=== PATIENT | male | born 1935 | race Caucasian/White ===

== ENCOUNTER 2019-05-07 18:15 | Observation (INO) | payer MEDICARE, BC, SELFPAY ==
--- NOTE | 2019-05-07 | DI.ECHO.S_ITS ---
[facility] +---------+ : : [address] : : : : [id number] : : : : Phone: [phone] Echocardiogram Report + + :Name: JACKY FERNANDES Study Date: 05/08/2019 Height: 68 in : :[facility] Weight: 180 lb : : Gender: Male BSA: 2.0 m2 : :: 1935 Age: 83 yrs BP: 125/78 mmHg: :Reason For Study: STROKE : :Ordering Physician: Dunia : :Hospitalist Performed By: Lyly Walton : :Referring: YUMIKO ROSARIO : + + Interpretation Summary The left ventricular ejection fraction is normal. There are no obvious focal wall motion abnormalities noted but poor endocardial definition reduces the sensitivity for the detection of such. Diastolic parameters suggest a relaxation abnormality of the left ventricle, consistent with probable normal filling pressures. The right ventricle is normal in size and function. The right ventricular systolic pressure is estimated to be at least 24 mmHg based on an estimated right atrial pressure of 8 mm Hg. The left atrium is mildly dilated. There is no Doppler evidence for an interatrial shunt. Fixed and calcified LCC with no hemodynamically significant aortic stenosis. There is no prior echocardiogram noted for this patient. Procedure: A two-dimensional transthoracic echocardiogram with color flow and Doppler was performed. The study quality was technically adequate. There is no prior echocardiogram noted for this patient. The patient was in sinus bradycardia with heart rates between 50 and 69 bpm during the exam. Left Ventricle: The left ventricle is normal in size. There is normal left ventricular wall thickness. The left ventricular ejection fraction is normal. The ejection fraction is estimated to be 55-60%. There are no obvious focal wall motion abnormalities noted but poor endocardial definition reduces the sensitivity for the detection of such. Diastolic parameters suggest a relaxation abnormality of the left ventricle, consistent with probable normal filling pressures. Right Ventricle: The right ventricle is normal in size and function. Atria: The left atrium is mildly dilated. Right atrial size is normal. There is no Doppler evidence for an interatrial shunt. Mitral Valve: The mitral valve leaflets appear borderline thickened, but open well. There is no mitral valve stenosis. There is mild mitral regurgitation. Aortic Valve: The aortic valve is trileaflet. The aortic valve is mildly calcified. The aortic valve opens well. Fixed and calcified LCC. There is no aortic valve stenosis. There is trace aortic regurgitation. Tricuspid Valve: The tricuspid valve is normal. There is mild tricuspid regurgitation. The right ventricular systolic pressure is estimated to be at least 24 mmHg based on an estimated right atrial pressure of 8 mm Hg. Pulmonic Valve: The pulmonic valve is not well seen, but is grossly normal. There is mild to moderate pulmonic regurgitation. 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 The ascending aorta is at the upper limits of normal in size. The aortic arch could not be visualized. The pulmonary is not well visualized. The IVC is dilated (diameter is greater than 2.1 cm) yet it collapses greater than 50% with a sniff. This suggests a right atrial pressure of 8 mm Hg. Pericardium/ Pleura There is no pericardial effusion. There is no pleural effusion. MMode/2D Measurements & Calculations LVIDd: 4.5 cm LVOT diam: 2.4 cm LVIDs: 2.8 cm Ao root diam: 4.5 cm FS: 37.9 % asc Aorta Diam: 3.7 cm EPSS: 0.28 cm IVSd: 1.0 cm LVPWd: 1.1 cm LV ellison. diameter/BSA (cm/m^2): 2.3 LV sys. diameter/BSA (cm/m^2): 1.4 LA A2 area: 22.6 cm2 RA long axis: 3.9 cm LA A4 area: 22.1 cm2 RA area: 14.0 cm2 LA length (vol): 5.5 cm RA vol: 43.2 ml LA vol: 76.7 ml RA : 22.1 ml/m2 LA vol index: 39.2 ml/m2 IVC diam: 2.7 cm RVD1 (basal): 4.6 cm RVD2 (mid): 3.2 cm TAPSE: 2.6 cm Doppler Measurements & Calculations Ao V2 max: 124.6 cm/sec LVOT Max Corwin: 92.1 cm/sec Ao V2 mean: 87.4 cm/sec LV V1 max P.4 mmHg Ao max P.2 mmHg LV V1 VTI: 21.7 cm Ao mean P.4 mmHg AKUA(I,D): 3.5 cm2 Ao V2 VTI: 28.6 cm AKUA(V,D): 3.4 cm2 sev ratio: 0.76 AKUA indexed to BSA (cm^2/m^2): 1.8 MV E max corwin: 63.6 cm/sec TR max corwin: 197.0 cm/sec MV A max corwin: 74.1 cm/sec TR max P.5 mmHg MV E/A: 0.86 PA V2 max: 62.4 cm/sec Med Peak E' Corwin: 6.1 cm/sec PA V2 mean: 41.6 cm/sec E/E' med: 10.4 PA mean P.77 mmHg Lat Peak E' Corwin: 6.6 cm/sec PA Accel Time: 0.08 sec E/E' lat: 9.6 E/e' average: 10.0 MV dec time: 0.34 sec SV(LVOT): 99.7 ml Electronically signed by: Raymond Velasco M.D. on Reading Physician:05/08/2019 02:52 PM
[2019-05-07 18:28] VITALS: BP 152/93; PULSE 77; RESP 12; TEMP 36.6; O2SAT 96
--- NOTE | 2019-05-07 18:28 | ED.NEUROSD ---
HPI - Neuro Symptoms/Deficit General Chief Complaint: Neuro Symptoms/Deficit Stated Complaint: thinks he had a TIA Time Seen by Provider: 05/07/19 18:19 Source: patient and family Mode of arrival: ambulatory Limitations: no limitations History of Present Illness HPI Narrative: Patient is a 83-year-old male with history of TIA presenting with difficulty speaking now resolved. He states that he was on the phone talking with his and his daughter. His states that he was having trouble remembering things he should no. Apparently his daughter had difficulty understanding him. Previously when he has had TIAs he felt numbness and tingling in his extremities he denies feeling any of those symptoms this time. Symptoms lasted from about 2:30 p.m. to about 4:00 p.m. he is now out of the window of tPA and the symptoms have completely resolved. He denies any symptoms no chest pain shortness of breath dizziness lightheadedness numbness tingling weakness speech difficulty or facial drooping. He does take Aggrenox and he took it today already. Timing confirmed by: spouse Location: speech History of same: Yes Related Data Home Medications Medication Instructions Recorded Confirmed aspirin-dipyridamole [Aggrenox] 1 cap PO BID 05/07/19 05/07/19 doxazosin 1 mg PO BEDTIME 05/07/19 05/07/19 ramipril 5 mg PO BID 05/07/19 05/07/19 simvastatin 10 mg PO BEDTIME 05/07/19 05/07/19 Allergies Allergy/AdvReac Type Severity Reaction Status Date / Time No Known Drug Allergies Allergy Verified 05/07/19 18:31 Review of Systems Review of Systems GENERAL: Denies chills, fatigue, malaise, fever, sweats, travel HEENT: Denies sinus pain, ear pain, sore throat, difficulty swallowing, neck pain RESPIRATORY: Denies dyspnea, cough, wheezing, hemoptysis, sputum. CARDIOVASCULAR: Denies chest pain, palpitations, orthopnea, edema GASTROINTESTINAL: Denies nausea, vomiting, abdominal pain, diarrhea, constipation, melena. : Denies dysuria, frequency, incontinence, hematuria, urinary retention, flank pain. MUSCULOSKELETAL: Denies weakness, joint pain, or bony pain SKIN: No rash, no erythema, no pruritus NEUROLOGIC: See HPI PSYCHIATRIC: No concerning psychosocial issues. 12 point review of systems is negative except for those stated above and HPI [facility] Medical History Prostate cancer (Acute) TIA (transient ischemic attack) (Acute) Surgical History Status post appendectomy (Acute) Status post tonsillectomy and adenoidectomy (Acute) Social History (Updated 05/07/19 @ 18:33 by Leslie Rae DO) Smoking Status: Never smoker alcohol intake: never substance use type: does not use Social History household members: spouse Smoking Status: Never smoker alcohol intake: never substance use type: does not use Comment: Lives in [place]. Currently living on boat Exam Initial Vital Signs Initial Vital Signs: Vital Signs Temperature 97.8 F 05/07/19 18:28 Pulse Rate 77 05/07/19 18:28 Respiratory Rate 12 05/07/19 18:28 Blood Pressure 152/93 H 05/07/19 18:28 Pulse Oximetry 96 05/07/19 18:28 GENERAL: Well-appearing, well-nourished and in no acute distress. HEENT: Head atraumatic,EOMI, pupils reactive, face symmetric, moist mucous membranes CARDIOVASCULAR: Regular rate and rhythm without murmurs, rubs or gallops. RESPIRATORY: Breath sounds equal bilaterally, no wheezes rales or rhonchi. ABDOMEN: Soft, nontender. Normoactive bowel sounds all 4 quadrants. No guarding or rebound. EXTREMITIES: Normal range of motion, no clubbing or edema. Neurovascularly intact NEUROLOGICAL: Alert and oriented x4.Normal gait and speech. Cranial nerves II through XII grossly intact. Good [id number]-[id number], good pbtj-bu-gpwg, strength equal bilaterally, no dysarthria or aphasia, sensation in tact to soft touch bilaterally, no visual changes, no facial droop SKIN: Warm, dry, no laceration, no petechiae, no rashes or lesions. Scores ABCD2 Age >= 60 years: yes Initial BP. Either SBP >= 140 or DBP >= 90.: yes Clinical features of the TIA: speech disturbance without weakness Duration of symptoms: >= 60 minutes History of diabetes: no ABCD2 Score: 5 NIH Stroke Scale Level of Conciousness: Alert, keenly responsive Ask month/age: Answers both questions correctly. Open/close eyes, close hand: Performs both tasks correctly Best gaze horizontal: Normal Visual lou: No visual loss Facial palsy: Normal symetrical movement Left arm drift: No drift for full 10 sec Right arm drift: No drift for full 10 sec Left leg drift: No drift for full 10 sec Right leg drift: No drift for full 10 sec Limb ataxia: Absent Sensory on face/arms/legs: Normal, no sensory loss Best language: No aphasia, normal Dysarthria: Normal Extinction or inattention: No abnormality Total NIH Stroke scale score: 0 Course Orders Ordered: ED Orders 05/07/19 18:28 CT head/brain wo con Stat EKG-12 Lead Stat 05/07/19 18:37 Complete Blood Count AUTO DIFF Stat Comprehensive Metabolic Panel Stat Partial Thromboplastin Time Stat Prothrombin Time INR Stat Troponin I Stat 05/07/19 21:29 Consult to Occupational Therapy Evaluate & Treat Consult to Speech Therapy Evaluate & Treat 05/08/19 05:00 Basic Metabolic Panel Routine Lipid Panel Routine Magnesium Routine 05/08/19 17:00 Complete Blood Count AUTO DIFF Routine Prothrombin Time INR Routine 05/08/19 19:23 MR stroke Stat Atorvastatin Calcium (Lipitor) 20 mg PO BEDTIME EMMIE Enoxaparin Sodium (Lovenox) 40 mg SUBCUT DAILY [facility] Discontinued Medications Dipyridamole/Aspirin (Aggrenox 25 Mg-200 Mg Capsule) 1 each PO NOW ONE Stop: 05/07/19 19:51 Last Admin: 05/07/19 20:29 Dose: 1 each Enoxaparin Sodium (Lovenox) 30 mg SUBCUT DAILY [facility] Vital Signs - 8 hr 05/07/19 18:28 05/07/19 19:52 05/07/19 22:05 Temperature 97.8 F 97.4 F L Pulse Rate 77 68 57 L Respiratory Rate 12 14 18 Blood Pressure 152/93 H 148/84 H Blood Pressure [Left Arm] 139/82 Pulse Oximetry 96 97 98 MDM - Neuro Symptoms/Deficit Lab Data Attestation: I reviewed the patient's lab results. Result diagrams: 05/07/19 18:37 05/07/19 18:37 Lab Results 05/07/19 05/07/19 05/07/19 Range/Units 18:37 18:37 18:37 WBC 5.8 (4.5-11.0) X10^3/uL RBC 4.12 L (4.5-5.9) X10^6/uL Hgb 13.3 L (13.5-17.5) g/dL Hct 39.2 L (41-53) % MCV 95.1 (80-100) fL MCH 32.2 (26-34) PG MCHC 33.9 (30-36) % RDW 12.9 (11.6-14.8) % Plt Count 198 (150-400) X10^3/uL Neut % (Auto) 61.6 (50-75) % Lymph % (Auto) 27.2 (25-40) % Tucker % (Auto) 6.8 (3-14) % Eos % (Auto) 4.0 (2-4) % Baso % (Auto) 0.4 (0-2) % Neut # (Auto) 3600 (5836-6460) /uL Lymph # (Auto) 1600 (6015-9467) /uL Tucker # (Auto) 400 (0-900) /uL Eos # (Auto) 200 (0-450) /uL Baso # (Auto) 0 (0-100) /uL PT 11.0 (10.1-12.7) SECONDS INR 1.0 (0.9-1.3) APTT 33 (26.4-36.2) SECONDS Sodium 134 L (137-145) mmol/L Potassium 4.1 (3.4-5.1) mmol/L Chloride 101 (98-107) mmol/L Carbon Dioxide 24 (22-32) mmol/L BUN 23 H (9-20) mg/dL Creatinine 0.80 (0.66-1.25) mg/dL Estimated GFR > 60.0 (>60) mL/min BUN/Creatinine Ratio 28.8 H (6-22) Glucose 159 H (80-110) mg/dL Calcium 9.4 (8.4-10.2) mg/dL Total Bilirubin 0.4 (0.2-1.3) mg/dL AST 34 (17-59) IU/L ALT 12 L (21-72) IU/L Alkaline Phosphatase 45 (38-126) U/L Troponin I < 0.012 (0.01-0.034) ng/mL Total Protein 7.1 (6.3-8.2) g/dL Albumin 4.1 (3.5-5.0) g/dL Globulin 3.0 (1.7-4.1) g/dL Albumin/Globulin Ratio 1.4 (1.0-2.8) Imaging Data CT scan - head: Radiologist's impression: PROCEDURE: CT HEAD/BRAIN WO CON INDICATIONS: difficult speaking now resolved TECHNIQUE: Noncontrast 4.5 mm thick angled axial sections acquired from the foramen magnum to the vertex, with coronal and sagittal reformats. For radiation dose reduction, the following was used: automated exposure control, adjustment of mA and/or kV according to patient size. COMPARISON: None. FINDINGS: Image quality: Excellent. CSF spaces: Basal cisterns are patent. No extra-axial fluid collections. Ventricles are normal in size and shape. Brain: No midline shift. No intracranial masses or hemorrhage. Graff-white matter interface is normal. Moderate periventricular hypodensity consistent with chronic microvascular ischemic change. Mild age related parenchymal loss. Calcification in the right distal vertebral artery. Skull and face: Calvarium and visualized facial bones are intact, without suspicious lesions. Sinuses: Visualized sinuses and mastoids are clear. IMPRESSION: No acute intracranial abnormality demonstrated. Dictated by: Thomas Vail M.D. on 05/07/2019 at 19:25 ECG Data Attestation: I personally reviewed and interpreted this ECG as follows: Prior ECG tracings: not available for review Interpretation: Sinus rhythm rate 70 appear interval [address] changes no T-wave inversion MDM Narrative Medical decision making narrative: Patient has history of TIA he is on appropriate medication including Aggrenox with symptoms concerning in a done for TIA. At this time will need to be observed. Gabi Mg [facility], updated on patient's symptoms test results in the ED to see and evaluate patient and happily accepts for observation Discharge Plan Departure Patient Disposition: Admitted as Observation Clinical Impression: TIA (transient ischemic attack) Discharge Date/Time: 05/07/19 21:41 Interventions: ED Discharge Assessment Last Done: 05/07/19 21:40 Admit Date/Time: 05/07/19 20:07 Admit Provider: Nae Mg
--- NOTE | 2019-05-07 18:34 | ED_ITS ---
HPI - Neuro Symptoms/Deficit General Chief Complaint: Neuro Symptoms/Deficit Stated Complaint: thinks he had a TIA Time Seen by Provider: 05/07/19 18:19 Source: patient and family Mode of arrival: ambulatory Limitations: no limitations History of Present Illness HPI Narrative: Patient is a 83-year-old male with history of TIA presenting with difficulty speaking now resolved. He states that he was on the phone talking with his and his daughter. His states that he was having trouble remembering things he should no. Apparently his daughter had difficulty understanding him. Previously when he has had TIAs he felt numbness and tingling in his extremities he denies feeling any of those symptoms this time. Symptoms lasted from about 2:30 p.m. to about 4:00 p.m. he is now out of the window of tPA and the symptoms have completely resolved. He denies any symptoms no chest pain shortness of breath dizziness lightheadedness numbness tingling weakness speech difficulty or facial drooping. He does take Aggrenox and he took it today already. Timing confirmed by: spouse Location: speech History of same: Yes Related Data Home Medications Medication Instructions Recorded Confirmed aspirin-dipyridamole [Aggrenox] 1 cap PO BID 05/07/19 05/07/19 doxazosin 1 mg PO BEDTIME 05/07/19 05/07/19 ramipril 5 mg PO BID 05/07/19 05/07/19 simvastatin 10 mg PO BEDTIME 05/07/19 05/07/19 Allergies Allergy/AdvReac Type Severity Reaction Status Date / Time No Known Drug Allergies Allergy Verified 05/07/19 18:31 Review of Systems Review of Systems GENERAL: Denies chills, fatigue, malaise, fever, sweats, travel HEENT: Denies sinus pain, ear pain, sore throat, difficulty swallowing, neck pain RESPIRATORY: Denies dyspnea, cough, wheezing, hemoptysis, sputum. CARDIOVASCULAR: Denies chest pain, palpitations, orthopnea, edema GASTROINTESTINAL: Denies nausea, vomiting, abdominal pain, diarrhea, constipation, melena. : Denies dysuria, frequency, incontinence, hematuria, urinary retention, flank pain. MUSCULOSKELETAL: Denies weakness, joint pain, or bony pain SKIN: No rash, no erythema, no pruritus NEUROLOGIC: See HPI PSYCHIATRIC: No concerning psychosocial issues. 12 point review of systems is negative except for those stated above and HPI [facility] Medical History Prostate cancer (Acute) TIA (transient ischemic attack) (Acute) Surgical History Status post appendectomy (Acute) Status post tonsillectomy and adenoidectomy (Acute) Social History (Updated 05/07/19 @ 18:33 by Leslie Rae DO) Smoking Status: Never smoker alcohol intake: never substance use type: does not use Social History household members: spouse Smoking Status: Never smoker alcohol intake: never substance use type: does not use Comment: Lives in [place]. Currently living on boat Exam Initial Vital Signs Initial Vital Signs: Vital Signs Temperature 97.8 F 05/07/19 18:28 Pulse Rate 77 05/07/19 18:28 Respiratory Rate 12 05/07/19 18:28 Blood Pressure 152/93 H 05/07/19 18:28 Pulse Oximetry 96 05/07/19 18:28 GENERAL: Well-appearing, well-nourished and in no acute distress. HEENT: Head atraumatic,EOMI, pupils reactive, face symmetric, moist mucous membranes CARDIOVASCULAR: Regular rate and rhythm without murmurs, rubs or gallops. RESPIRATORY: Breath sounds equal bilaterally, no wheezes rales or rhonchi. ABDOMEN: Soft, nontender. Normoactive bowel sounds all 4 quadrants. No gua rding or rebound. EXTREMITIES: Normal range of motion, no clubbing or edema. Neurovascularly intact NEUROLOGICAL: Alert and oriented x4.Normal gait and speech. Cranial nerves II through XII grossly intact. Good qjcqzz-wo-pyil, good ydxp-vn-yoam, strength equal bilaterally, no dysarthria or aphasia, sensation in tact to soft touch bilaterally, no visual changes, no facial droop SKIN: Warm, dry, no laceration, no petechiae, no rashes or lesions. Scores ABCD2 Age >= 60 years: yes Initial BP. Either SBP >= 140 or DBP >= 90.: yes Clinical features of the TIA: speech disturbance without weakness Duration of symptoms: >= 60 minutes History of diabetes: no ABCD2 Score: 5 NIH Stroke Scale Level of Conciousness: Alert, keenly responsive Ask month/age: Answers both questions correctly. Open/close eyes, close hand: Performs both tasks correctly Best gaze horizontal: Normal Visual lou: No visual loss Facial palsy: Normal symetrical movement Left arm drift: No drift for full 10 sec Right arm drift: No drift for full 10 sec Left leg drift: No drift for full 10 sec Right leg drift: No drift for full 10 sec Limb ataxia: Absent Sensory on face/arms/legs: Normal, no sensory loss Best language: No aphasia, normal Dysarthria: Normal Extinction or inattention: No abnormality Total NIH Stroke scale score: 0 Course Orders Ordered: ED Orders 05/07/19 18:28 CT head/brain wo con Stat EKG-12 Lead Stat 05/07/19 18:37 Complete Blood Count AUTO DIFF Stat Comprehensive Metabolic Panel Stat Partial Thromboplastin Time Stat Prothrombin Time INR Stat Troponin I Stat 05/07/19 21:29 Consult to Occupational Therapy Evaluate & Treat Consult to Speech Therapy Evaluate & Treat 05/08/19 05:00 Basic Metabolic Panel Routine Lipid Panel Routine Magnesium Routine 05/08/19 17:00 Complete Blood Count AUTO DIFF Routine Prothrombin Time INR Routine 05/08/19 19:23 MR stroke Stat Atorvastatin Calcium (Lipitor) 20 mg PO BEDTIME EMMIE Enoxaparin Sodium (Lovenox) 40 mg SUBCUT DAILY [facility] Discontinued Medications Dipyridamole/Aspirin (Aggrenox 25 Mg-200 Mg Capsule) 1 each PO NOW ONE Stop: 05/07/19 19:51 Last Admin: 05/07/19 20:29 Dose: 1 each Enoxaparin Sodium (Lovenox) 30 mg SUBCUT DAILY [facility] Vital Signs - 8 hr 05/07/19 18:28 05/07/19 19:52 05/07/19 22:05 Temperature 97.8 F 97.4 F L Pulse Rate 77 68 57 L Respiratory Rate 12 14 18 Blood Pressure 152/93 H 148/84 H Blood Pressure [Left Arm] 139/82 Pulse Oximetry 96 97 98 MDM - Neuro Symptoms/Deficit Lab Data Attestation: I reviewed the patient's lab results. Result diagrams: 05/07/19 18:37 05/07/19 18:37 Lab Results 05/07/19 05/07/19 05/07/19 Range/Units 18:37 18:37 18:37 WBC 5.8 (4.5-11.0) X10^3/uL RBC 4.12 L (4.5-5.9) X10^6/uL Hgb 13.3 L (13.5-17.5) g/dL Hct 39.2 L (41-53) % MCV 95.1 (80-100) fL MCH 32.2 (26-34) PG MCHC 33.9 (30-36) % RDW 12.9 (11.6-14.8) % Plt Count 198 (150-400) X10^3/uL Neut % (Auto) 61.6 (50-75) % Lymph % (Auto) 27.2 (25-40) % Leon % (Auto) 6.8 (3-14) % Eos % (Auto) 4.0 (2-4) % Baso % (Auto) 0.4 (0-2) % Neut # (Auto) 3600 (7025-4824) /uL Lymph # (Auto) 1600 (9361-1100) /uL Leon # (Auto) 400 (0-900) /uL Eos # (Auto) 200 (0-450) /uL Baso # (Auto) 0 (0-100) /uL PT 11.0 (10.1-12.7) SECONDS INR 1.0 (0.9-1.3) APTT 33 (26.4-36.2) SECONDS Sodium 134 L (137-145) mmol/L Potassium 4.1 (3.4-5.1) mmol/L Chloride 101 (98-107) mmol/L Carbon Dioxide 24 (22-32) mmol/L BUN 23 H (9-20) mg/dL Creatinine 0.80 (0.66-1.25) mg/dL Estimated GFR > 60.0 (>60) mL/min BUN/Creatinine Ratio 28.8 H (6-22) Glucose 159 H (80-110) mg/dL Calcium 9.4 (8.4-10.2) mg/dL Total Bilirubin 0.4 (0.2-1.3) mg/dL AST 34 (17-59) IU/L ALT 12 L (21-72) IU/L Alkaline Phosphatase 45 (38-126) U/L Troponin I < 0.012 (0.01-0.034) ng/mL Total Protein 7.1 (6.3-8.2) g/dL Albumin 4.1 (3.5-5.0) g/dL Globulin 3.0 (1.7-4.1) g/dL Albumin/Globulin Ratio 1.4 (1.0-2.8) Imaging Data CT scan - head: Radiologist's impression: PROCEDURE: CT HEAD/BRAIN WO CON INDICATIONS: difficult speaking now resolved TECHNIQUE: Noncontrast 4.5 mm thick angled axial sections acquired from the foramen magnum to the vertex, with coronal and sagittal reformats. For radiation dose reduction, the following was used: automated exposure control, adjustment of mA and/or kV according to patient size. COMPARISON: None. FINDINGS: Image quality: Excellent. CSF spaces: Basal cisterns are patent. No extra-axial fluid collections. Ventricles are normal in size and shape. Brain: No midline shift. No intracranial masses or hemorrhage. Graff-white matter interface is normal. Moderate periventricular hypodensity consistent with chronic microvascular ischemic change. Mild age related parenchymal loss. Calcification in the right distal vertebral artery. Skull and face: Calvarium and visualized facial bones are intact, without suspicious lesions. Sinuses: Visualized sinuses and mastoids are clear. IMPRESSION: No acute intracranial abnormality demonstrated. Dictated by: Thomas Vail M.D. on 05/07/2019 at 19:25 ECG Data Attestation: I personally reviewed and interpreted this ECG as follows: Prior ECG tracings: not available for review Interpretation: Sinus rhythm rate 70 appear interval [address] changes no T-wave inversion MDM Narrative Medical decision making narrative: Patient has history of TIA he is on appropriate medication including Aggrenox with symptoms concerning in a done for TIA. At this time will need to be observed. Gabi Mg [facility], updated on patient's symptoms test results in the ED to see and evaluate patient and happily accepts for observation Discharge Plan Departure Patient Disposition: Admitted as Observation Clinical Impression: TIA (transient ischemic attack) Discharge Date/Time: 05/07/19 21:41 Interventions: ED Discharge Assessment Last Done: 05/07/19 21:40 Admit Date/Time: 05/07/19 20:07 Admit Provider: Nae Mg
--- NOTE | 2019-05-07 18:41 | PC.NURSE ---
Patient reports around 1400 having 4 seperate phone calls in which he couldn't get out his words. Patient aware that his words were not coming out correctly. States [facility] [place] [facility] and couldn't recall his phone number or address. Patient presents to the ER with no symptoms at this time. States that it all started to clear up around 1630. Jesica has had TIA in the past around 17 yrs ago.
[2019-05-07 18:44] LABS: Add Manual Diff / Slide Review NO; Basophils Absolute Auto 0 /uL (0-100); Basophils Percent Auto 0.4 % (0-2); Eosinophils Absolute Auto 200 /uL (0-450); Hematocrit 39.2 % (41-53); Hemoglobin 13.3 g/dL (13.5-17.5); Lymphocytes Absolute Auto 1600 /uL (1100-4500); Lymphocytes Percent Auto 27.2 % (25-40); Mean Corpuscular HGB Conc 33.9 % (30-36); Mean Corpuscular Hemoglobin 32.2 PG (26-34); Mean Corpuscular Volume 95.1 fL (80-100); Monocytes Absolute Auto 400 /uL (0-900); Monocytes Percent Auto 6.8 % (3-14); Neutrophils Absolute Auto 3600 /uL (1500-7000); Neutrophils Percent Auto 61.6 % (50-75); Platelet Count 198 X10^3/uL (150-400); Red Blood Cell Count 4.12 X10^6/uL (4.5-5.9); Red Cell Distribution Width 12.9 % (11.6-14.8); White Blood Cell Count 5.8 X10^3/uL (4.5-11.0)
[2019-05-07 18:53] LABS: Alanine Aminotransferase 12 IU/L (21-72); Albumin 4.1 g/dL (3.5-5.0); Albumin Globulin Ratio 1.4 (1.0-2.8); Alkaline Phosphatase 45 U/L (38-126); Aspartate Aminotransferase 34 IU/L (17-59); BUN Creatinine Ratio 28.8 (6-22); Bilirubin Total 0.4 mg/dL (0.2-1.3); Blood Urea Nitrogen 23 mg/dL (9-20); Calcium 9.4 mg/dL (8.4-10.2); Carbon Dioxide 24 mmol/L (22-32); Chloride 101 mmol/L (98-107); Estimated Glomerular Filt Rate > 60.0 mL/min (>60); Glucose 159 mg/dL (80-110); HEMOLYSIS 24 (0-50); Potassium 4.1 mmol/L (3.4-5.1); Sodium 134 mmol/L (137-145); Total Protein 7.1 g/dL (6.3-8.2)
[2019-05-07 18:55] LABS: PTT Partial Thromboplastin Tim 33 SECONDS (26.4-36.2)
[2019-05-07 19:05] LABS: Troponin I < 0.012 ng/mL (0.01-0.034)
[2019-05-07 19:52] VITALS: BP 139/82; PULSE 68; RESP 14; O2SAT 97
[2019-05-07] MEDS: ASPIRIN/DIPYRIDAMOLE 200/25 CAP 1 EACH PO (20:29)
[2019-05-07 22:05] VITALS: BP 148/84; PULSE 57; RESP 18; TEMP 36.3; O2SAT 98
[2019-05-07 22:20] VITALS: BMI 26.2
[2019-05-07 22:40] VITALS: O2SAT 98
--- NOTE | 2019-05-07 22:51 | PM.HP.1 ---
History of Present Illness Date Patient Seen: 05/07/19 Time Patient Seen: 19:45 Chief complaint: thinks he had a TIA Narrative: Tano Jorge is a pleasant 83-year-old male with a history of a prior TIA approximately 17 years ago, hypertension, hyperlipidemia, and BPH was in his usual state of health when he was speaking to his daughter earlier today and was having problems word-finding. Per the emergency department the daughter stated that he started to speak in a rambling manner then progressing to gibberish. He states that he was actually at the [employer] and was able to tell the outbound sales consultant what he was needing. He then went over to [employer], purchase some items but was unable to give them the phone number associated with his [employer] card. He returned over to the canvas shop to speak to his and could not remember her phone number. He eventually reunited with her and they ate lunch at [employer]. After having lunch they took a cab to the hospital. The ED's NIHS score was 1. 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 Patient History Medical History BPH (benign prostatic hyperplasia) (Chronic) Essential hypertension (Chronic) Hyperlipidemia (Chronic) TIA (transient ischemic attack) (Acute) Prostate cancer (Chronic) Surgical History Status post appendectomy (Chronic) Status post tonsillectomy and adenoidectomy (Chronic) Social History household members: spouse Smoking Status: Never smoker alcohol intake: never substance use type: does not use Family & Social History Social History: household members spouse Prior Living Arrangements lives on a motor boat in both [place] and here in [facility] Safety & Behavioral: Feels Safe in Current Yes Environment Suicidal Ideation Description None Tobacco & Substance use: Smoking Status less than a 5 year pack history in the remote past alcohol intake quit 3 years ago Substance Use Type does not use Meds Home Medications Medication Instructions Recorded Confirmed Type aspirin-dipyridamole [Aggrenox] 1 cap PO BID 05/07/19 05/07/19 History doxazosin 1 mg PO BEDTIME 05/07/19 05/07/19 History ramipril 5 mg PO BID 05/07/19 05/07/19 History simvastatin 10 mg PO BEDTIME 05/07/19 05/07/19 History Allergies Allergy/AdvReac Type Severity Reaction Status Date / Time No Known Drug Allergies Allergy Verified 05/07/19 18:31 Review of Systems Review of Systems All systems reviewed & are unremarkable except as noted in HPI and below Exam Vital Signs (past 8 hours): - 05/07/19 18:28 05/07/19 19:52 05/07/19 22:05 Temperature 97.8 F 97.4 F L Pulse Rate 77 68 57 L Respiratory Rate 12 14 18 Blood Pressure 152/93 H 148/84 H Blood Pressure [Left Arm] 139/82 Pulse Oximetry 96 97 98 Oxygen Delivery Method Room Air Narrative Exam Narrative: Gen: Alert, oriented, well-developed 83 y.o. male, appears younger than stated age HEENT: normocephalic, atraumatic, conjunctiva clear, sclera non-icteric, oral mucosa pink and moist Neck: supple, full ROM Resp: Lungs CTA, non-labored breathing CV: RRR, no murmur or rubs Abd: soft, non-tender, normoactive BTs Skin: Evidence of lifelong sun exposure, no lesions or rashes, dry and intact Neuro: Alert and oriented X 4 w/no focal deficits Extremities: moves all 4 extremities, is ambulatory, negative Rosario?s sign Psyche: normal mood and affect. Objective Labs Result Diagrams: 05/07/19 18:37 05/07/19 18:37 Labs: Laboratory Results - last 24 hr 05/07/19 05/07/19 05/07/19 18:37 18:37 18:37 WBC 5.8 RBC 4.12 L Hgb 13.3 L Hct 39.2 L MCV 95.1 MCH 32.2 MCHC 33.9 RDW 12.9 Plt Count 198 Neut % (Auto) 61.6 Lymph % (Auto) 27.2 [place] % (Auto) 6.8 Eos % (Auto) 4.0 Baso % (Auto) 0.4 Neut # (Auto) 3600 Lymph # (Auto) 1600 [place] # (Auto) 400 Eos # (Auto) 200 Baso # (Auto) 0 PT 11.0 INR 1.0 APTT 33 Sodium 134 L Potassium 4.1 Chloride 101 Carbon Dioxide 24 BUN 23 H Creatinine 0.80 Estimated GFR > 60.0 BUN/Creatinine Ratio 28.8 H Glucose 159 H Calcium 9.4 Total Bilirubin 0.4 AST 34 ALT 12 L Alkaline Phosphatase 45 Troponin I < 0.012 Total Protein 7.1 Albumin 4.1 Globulin 3.0 Albumin/Globulin Ratio 1.4 Assessment & Plan Assessment & Plan narrative: 1. Suspected TIA, acute, appears to be resolved on admission Patient will continue Aggrenox though this may change be changed to a NOAC tomorrow MRI/MRA in the morning, patient is NPO after midnight Neuro checks q.4 hours Lipid panel in the morning 2. Essential hypertension Patient currently takes ramipril 5 mg p.o. b.i.d. This will be continued tonight however it is likely he will to be changed to lisinopril once daily 3. Hyperlipidemia Patient was taking simvastatin 10 mg daily, this has been discontinued A lipid panel in the morning He will be initiated on atorvastatin 20 mg p.o. in the evening 4. BPH Patient will continue home dose of doxazosin 1 mg p.o. at bedtime Quality Stroke Onset of Symptoms Date: 05/07/19 Symptom Onset Unknown: Yes Rehab Services Assessed: Rehabilitation therapy VTE Deep Vein Thrombosis/Pulmonary Embolism Present on Admission: No
--- NOTE | 2019-05-07 23:02 | P.HP_ITS ---
History of Present Illness Date Patient Seen: 05/07/19 Time Patient Seen: 19:45 Chief complaint: thinks he had a TIA Narrative: Tano Jorge is a pleasant 83-year-old male with a history of a prior TIA approximately 17 years ago, hypertension, hyperlipidemia, and BPH was in his usual state of health when he was speaking to his daughter earlier today and was having problems word-finding. Per the emergency department the daughter stated that he started to speak in a rambling manner then progressing to gibberish. He states that he was actually at the [facility] and was able to tell the florist supplies salesperson what he was needing. He then went over to [employer], purchase some items but was unable to give them the phone number associated with his [employer] card. He returned over to the canvas shop to speak to his and could not remember her phone number. He eventually reunited with her and they ate lunch at [employer]. After having lunch they took a cab to the hospital. The ED's NIHS score was 1. 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 Patient History Medical History BPH (benign prostatic hyperplasia) (Chronic) Essential hypertension (Chronic) Hyperlipidemia (Chronic) TIA (transient ischemic attack) (Acute) Prostate cancer (Chronic) Surgical History Status post appendectomy (Chronic) Status post tonsillectomy and adenoidectomy (Chronic) Social History household members: spouse Smoking Status: Never smoker alcohol intake: never substance use type: does not use Family & Social History Social History: household members spouse Prior Living Arrangements lives on a motor boat in both [place] and here in [facility] Safety & Behavioral: Feels Safe in Current Yes Environment Suicidal Ideation Description None Tobacco & Substance use: Smoking Status less than a 5 year pack history in the remote past alcohol intake quit 3 years ago Substance Use Type does not use Meds Home Medications Medication Instructions Recorded Confirmed Type aspirin-dipyridamole [Aggrenox] 1 cap PO BID 05/07/19 05/07/19 History doxazosin 1 mg PO BEDTIME 05/07/19 05/07/19 History ramipril 5 mg PO BID 05/07/19 05/07/19 History simvastatin 10 mg PO BEDTIME 05/07/19 05/07/19 History Allergies Allergy/AdvReac Type Severity Reaction Status Date / Time No Known Drug Allergies Allergy Verified 05/07/19 18:31 Review of Systems Review of Systems All systems reviewed & are unremarkable except as noted in HPI and below Exam Vital Signs (past 8 hours): - 05/07/19 18:28 05/07/19 19:52 05/07/19 22:05 Temperature 97.8 F 97.4 F L Pulse Rate 77 68 57 L Respiratory Rate 12 14 18 Blood Pressure 152/93 H 148/84 H Blood Pressure [Left Arm] 139/82 Pulse Oximetry 96 97 98 Oxygen Delivery Method Room Air Narrative Exam Narrative: Gen: Alert, oriented, well-developed 83 y.o. male, appears younger than stated age HEENT: normocephalic, atraumatic, conjunctiva clear, sclera non-icteric, oral mucosa pink and moist Neck: supple, full ROM Resp: Lungs CTA, non-labored breathing CV: RRR, no murmur or rubs Abd: soft, non-tender, normoactive BTs Skin: Evidence of lifelong sun exposure, no lesions or rashes, dry and intact Neuro: Alert and oriented X 4 w/no focal deficits Extremities: moves all 4 extremities, is ambulatory, negative Rosario?s sign Psyche: normal mood and affect. Objective Labs Result Diagrams: 05/07/19 18:37 05/07/19 18:37 Labs: Laboratory Results - last 24 hr 05/07/19 05/07/19 05/07/19 18:37 18:37 18:37 WBC 5.8 RBC 4.12 L Hgb 13.3 L Hct 39.2 L MCV 95.1 MCH 32.2 MCHC 33.9 RDW 12.9 Plt Count 198 Neut % (Auto) 61.6 Lymph % (Auto) 27.2 [place] % (Auto) 6.8 Eos % (Auto) 4.0 Baso % (Auto) 0.4 Neut # (Auto) 3600 Lymph # (Auto) 1600 [place] # (Auto) 400 Eos # (Auto) 200 Baso # (Auto) 0 PT 11.0 INR 1.0 APTT 33 Sodium 134 L Potassium 4.1 Chloride 101 Carbon Dioxide 24 BUN 23 H Creatinine 0.80 Estimated GFR > 60.0 BUN/Creatinine Ratio 28.8 H Glucose 159 H Calcium 9.4 Total Bilirubin 0.4 AST 34 ALT 12 L Alkaline Phosphatase 45 Troponin I < 0.012 Total Protein 7.1 Albumin 4.1 Globulin 3.0 Albumin/Globulin Ratio 1.4 Assessment & Plan Assessment & Plan narrative: 1. Suspected TIA, acute, appears to be resolved on admission * Patient will continue Aggrenox though this may change be changed to a NOAC tomorrow * MRI/MRA in the morning, patient is NPO after midnight * Neuro checks q.4 hours * Lipid panel in the morning 2. Essential hypertension * Patient currently takes ramipril 5 mg p.o. b.i.d. * This will be continued tonight however it is likely he will to be changed to lisinopril once daily 3. Hyperlipidemia * Patient was taking simvastatin 10 mg daily, this has been discontinued * A lipid panel in the morning * He will be initiated on atorvastatin 20 mg p.o. in the evening 4. BPH * Patient will continue home dose of doxazosin 1 mg p.o. at bedtime Quality Stroke Onset of Symptoms Date: 05/07/19 Symptom Onset Unknown: Yes Rehab Services Assessed: Rehabilitation therapy VTE Deep Vein Thrombosis/Pulmonary Embolism Present on Admission: No
--- NOTE | 2019-05-07 23:37 | PC.ADMIT ---
[address] [place] [address] [address] Admission Note: The patient,Tano Ayers,83 y/o, was given written information regarding hospital policies, unit procedures and contact persons. Patient's smoking status: Never smoker. Vital Signs - 8 hr 05/07/19 18:28 05/07/19 19:52 05/07/19 22:05 Temperature 97.8 F 97.4 F L Pulse Rate 77 68 57 L Respiratory Rate 12 14 18 Blood Pressure 152/93 H 148/84 H Blood Pressure [Left Arm] 139/82 Pulse Oximetry 96 97 98 05/07/19 22:40 Temperature Pulse Rate Respiratory Rate Blood Pressure Blood Pressure [Left Arm] Pulse Oximetry 98 Pt arrived to room 208 at 2145 via w/c. A/O. NIH 0. Tele on. Oriented to room and call system. Urinal provided. Advised pt to call for staff sba. Call light within reach. Personal c-pap set-up.
[2019-05-07 23:45] VITALS: BP 130/78; PULSE 60; RESP 16; TEMP 37; O2SAT 93
[2019-05-08 00:05] VITALS: O2SAT 93
--- NOTE | 2019-05-08 00:17 | PC.NURSE ---
Denies JAMES, CP & other discomfort. Ambulated to the BR. gait steady, voided clear Yellow urine. Urine specimen collected & sent to the lab.
[2019-05-08 06:00] VITALS: BP 125/78; PULSE 53; RESP 16; TEMP 36.8; O2SAT 96
[2019-05-08 06:38] LABS: BUN Creatinine Ratio 22.5 (6-22); Blood Urea Nitrogen 18 mg/dL (9-20); Carbon Dioxide 25 mmol/L (22-32); Chloride 103 mmol/L (98-107); Cholesterol 107 mg/dL (140-199); Estimated Glomerular Filt Rate > 60.0 mL/min (>60); Glucose 90 mg/dL (80-110); HDL Cholesterol 44 mg/dL (40-60); HEMOLYSIS < 15 (0-50); LDL Cholesterol Calculated 52 mg/dL (<100); Potassium 4.1 mmol/L (3.4-5.1); Sodium 134 mmol/L (137-145); Triglycerides 53 mg/dL (35-150)
[2019-05-08 07:44] VITALS: O2SAT 97
[2019-05-08 09:00] VITALS: BP 156/96; PULSE 64; RESP 16; TEMP 36.3; O2SAT 97
[2019-05-08] MEDS: ENOXAPARIN 40 MG/0.4 ML SYRINGE SUBCUT (09:22)
[2019-05-08] MEDS: RAMIPRIL 5 MG CAPSULE PO (09:23)
[2019-05-08] MEDS: ASPIRIN/DIPYRIDAMOLE 200/25 CAP 1 EACH PO (09:23)
[2019-05-08] MEDS: SODIUM CHLORIDE 0.9% FLUSH 10 ML IV (09:23)
--- NOTE | 2019-05-08 10:13 | PC.NURSE ---
Day shift: Pt off unit for MRI at this time. Taken down in WC by
--- NOTE | 2019-05-08 11:19 | PC.NURSE ---
Day shift: Pt back on AC unit at approx 1100. No c/o chest pain or any discomfort.
[2019-05-08 12:00] VITALS: BP 131/86; PULSE 54; RESP 16; O2SAT 95
--- NOTE | 2019-05-08 13:51 | ST.IPSCREEN ---
Order received for speech/swallow evaluation secondary to admit to ED with TIA. Pt's s/sx had resolved prior to admit yesterday. Met with pt and screened speech/language, orientation and swallowing. All appeared to be WNL. No word-finding, no dysarthria/aphasia nor dysphagia observed. Formal evaluations not indicated at this time. [facility]
--- NOTE | 2019-05-08 13:55 | PT.IIE ---
Surgical History (Last Reviewed 05/07/19 @ 22:56 by RAJINDER Powell) Status post appendectomy (Chronic) Status post tonsillectomy and adenoidectomy (Chronic) Medical History (Last Reviewed 05/07/19 @ 22:56 by RAJINDER Powell) TIA (transient ischemic attack) (Acute) BPH (benign prostatic hyperplasia) (Chronic) Essential hypertension (Chronic) Hyperlipidemia (Chronic) Prostate cancer (Chronic) Physical Therapy Inpatient Evaluation/Re-Eval M1 PT/OT-IP Prior Functional Status Start: 05/08/19 15:14 Freq: NEEDED Status: Discharge Protocol: Document 05/08/19 15:14 [facility] (Rec: 05/08/19 15:49 [facility] [id number]) Medical Review Prior Functional Status Medical History Reviewed Yes Communication Independent. Mobility and Gait Independent with no device. Activities of Daily Living and IADL's Independent. Social History Household Members spouse Living Arrangements House M1 PT/OT-IP Prior Functional Status Start: 05/08/19 16:14 Freq: NEEDED Status: Active Protocol: Document 05/08/19 13:55 AB (Rec: 05/08/19 16:23 AB [id number]) Medical Review Prior Functional Status Medical History Reviewed Yes Communication able to make needs known Mobility and Gait stated that he is independent with all mobilities and ambulation without AD Social History Household Members spouse Living Arrangements House Number of Floors (Floors) One Floor Number of Stairs To Enter/Railing? 4 steps to enter with wide rails and can only use one rail at a time Home Environment Standard Height Toilet Walk in Shower Employment Status Retired Additional Social History Comment pt stated that he lives in [facility] and lives on his boat but also has a mobile home and a house. M2 PT-IP Current Condition Start: 05/08/19 16:14 Freq: NEEDED Status: Active Protocol: Document 05/08/19 13:55 AB (Rec: 05/08/19 16:23 AB [id number]) Physical Therapy Current Condition Current Condition Evaluation Date 05/08/19 Treatment Diagnosis TIA; difficulty in walking Onset Date 05/07/19 M3 PT-IP Subjective Start: 05/08/19 16:14 Freq: NEEDED Status: Active Protocol: Document 05/08/19 13:55 AB (Rec: 05/08/19 16:23 AB [id number]) Subjective Physical Therapy Visit Type Type Initial Evaluation Visit Start Time 13:55 Visit Stop Time 14:13 Total Visit Minutes 18 Number of HEAD TENNIS COACH Visits 0 Physical Therapy Visit Comments Patient Comments pt agreeable to do PT; stated I don't have physical symptoms Therapy Pain Assessment Pain Present Pain Present Denied Pain M4 PT-IP Mobility and Gait Start: 05/08/19 16:14 Freq: NEEDED Status: Active Protocol: Document 05/08/19 13:55 AB (Rec: 05/08/19 16:23 AB [id number]) PT-Bed Mobility Assessment Supine to Sit Supine to Sit Independent Sit to Supine Sit to Supine Independent Scooting Scooting to Edge of Bed Independent PT-Transfer Assessment Sit to and From Stand Sit to and from Stand Independent Equipment Transfer Assistive Device None Gait Assessment Gait Gait Assistance Required: Standby Assistance Distance (Feet) 250 Able to Maintain Weight Bearing Status Yes During Gait Assistive Devices Assistive Device None Gait Deviations General Gait Pattern Within Normal Limits Stair Climbing Assessment Evaluation Level of Assist On Stairs Standby Assistance 1 Person Assistance Devices Stair Climbing Assistive Devices None Technique/Endurance Stair Climbing Direction Ascend and Descend Stair Climbing Technique Step Over Step Comments Stair Climbing Comments pt with slight unsteadiness with descending steps but without LOB PT-Balance Assessment Sitting Balance and Reactions Static Sitting Balance Ability Normal Dynamic Sitting Balance Ability Normal Standing Balance and Reactions Static Standing Balance Ability Good Dynamic Standing Balance Ability Good Device Used without AD Functional Assessments Functional Tests Tinetti Balance and Gait Assessment total score 28/28 which relates to low fall risk M5 PT-IP Objective Assessments Start: 05/08/19 16:14 Freq: NEEDED Status: Active Protocol: Document 05/08/19 13:55 AB (Rec: 05/08/19 16:23 AB [id number]) Orientation Orientation/Cognition Level of Alertness Alert Orientation Name Age Birthday Month Date Year Day of Week Place Situation Language Function Ability No Deficits Noted Safety Awareness Understands Safety Issues Memory Description No Deficits Noted Gross Range of Motion Lower Extremity ROM Assessment Within Functional Limits Strength Lower Extremity Strength Assessment Within Functional Limits Coordination Assessment Gross Coordination Gross Coordination WNL Sensation Assessment Sensation Gross Sensation WNL Muscle Tone Muscle Tone WNL Yes M6 PT-IP Treatment Start: 05/08/19 16:14 Freq: NEEDED Status: Active Protocol: Document 05/08/19 13:55 AB (Rec: 05/08/19 16:23 AB [id number]) Physical Therapy Treatment Education Education Provided Safety M7 PT-IP Assessment and Plan Start: 05/08/19 16:14 Freq: NEEDED Status: Active Protocol: Document 05/08/19 13:55 AB (Rec: 05/08/19 16:23 AB [id number]) PT Summary Assessment and Plan Potential Rehabilitation Potential Good Status of Condition at Evaluation Stable Summary Impairments Balance Gait Assessment Summary pt is doing well with mobility and plans to go home with spouse to assist him as needed . PT eval completed and no further PT intervention indicated at this time. Frequency of Treatment Frequency Of Treatment Discharge Recommendations To Nursing Amount of Assist Needed Standby Assistance Discharge Recommendations PT Discharge Recommendations Home
--- NOTE | 2019-05-08 14:06 | P.DS_ITS ---
History of Present Illness Date Patient Seen: 05/08/19 Time Patient Seen: 13:30 Chief complaint: thinks he had a TIA Narrative: As per Nae Mg: Tano Jorge is a pleasant 83-year-old male with a history of a prior TIA approximately 17 years ago, hypertension, hyperlipidemia, and BPH was in his usual state of health when he was speaking to his daughter earlier today and was having problems word-finding. Per the emergency department the daughter stated that he started to speak in a rambling manner then progressing to gibberish. 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 He then went over to [employer], purchase some items but was unable to give them the phone number associated with his [employer] card. He returned over to the canvas shop to speak to his and could not remember her phone number. He eventually reunited with her and they ate lunch at [employer]. After having lunch they took a cab to the hospital. The ED's NIHS score was 1. 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 Discharge Providers Date of admission: 05/07/19 20:07 Discharge Date: 05/08/19 Consults: 05/07/19 21:29 Consult to Occupational Therapy Evaluate & Treat Comment: TIA Physician Instructions: Evaluate and treat Consult to Speech Therapy Evaluate & Treat Comment: TIA Physician Instructions: Evaluate and treat 05/08/19 09:37 Consult to Physical Therapy Evaluate & Treat Comment: Physician Instructions: Evaluate and Treat 05/08/19 09:38 Consult to Speech Therapy Evaluate & Treat Comment: Physician Instructions: Evaluate and treat Discharge provider: Tano Verma DO Summary Discharge Diagnosis: 1. Suspected TIA, acute, appears to be resolved on admission - differential includes transient global amnesia, toxic or metabolic encepahlopathies (unlikely given laboratory findings on admission), or complex migraine (patient 2. Essential hypertension 3. Hyperlipidemia 4. BPH Hospital Course: Tano Jorge is a pleasant 83-year-old male with a history of a prior TIA approximately 17 years ago, hypertension, hyperlipidemia, and BPH was in his usual state of health when he was speaking to his daughter earlier today and was having problems word-finding and memory which lasted for only a few hours and resolved by the time he was admitted. Patient was observed overnight and had no recurrences of his symptoms. He had an MRI/MRA of his brain which revealed no evidence of stroke and no significant carotid disease. His echocardiogram showed a normal ejection fraction, however it was slightly less than on prior study with possible inferior wall hypokinesis. Given the lack of chest pain or other cardiac symptoms this is of little clinical relevance in the situation. There was no evidence of thrombus. His LDL level was 52, and no medication changes were made. He was discharged home the following day. There was no need for physical therapy or speech therapy evaluation as the patient had no deficits upon my examination. 1. Suspected TIA, acute, appears to be resolved on admission - differential includes transient global amnesia, toxic or metabolic encepahlopathies (unlikely given laboratory findings on admission), or complex migraine (patient reports no headaches recently). Patient will continue Aggrenox MRI/MRA as noted above, no abnormal findings Lipid panel well controlled 2. Essential hypertension Patient currently takes ramipril 5 mg p.o. b.i.d. which he can continue 3. Hyperlipidemia Patient was taking simvastatin 10 mg daily, this can be continued given his LDL level. 4. BPH Patient will continue home dose of doxazosin 1 mg p.o. at bedtime Exam Vital Signs (past 8 hours): - 05/08/19 07:44 05/08/19 09:00 05/08/19 12:00 Temperature 97.3 F L Pulse Rate 64 54 L Respiratory Rate 16 16 Blood Pressure 156/96 H 131/86 Pulse Oximetry 97 97 95 Oxygen Delivery Method Room Air Oxygen Flow Rate 0 Narrative Exam Narrative: GENERAL APPEARANCE: Well developed, well nourished, in no acute distress. SKIN: Inspection of the skin reveals no rashes, ulcerations or petechiae. HEENT: The sclerae were anicteric and conjunctivae were pink and moist. Extraocular movements were intact and pupils were equal, round, and reactive to light with normal accommodation. External inspection of the ears and nose showed no scars, lesions, or masses. Lips, teeth, and gums showed normal mucosa. The oral mucosa, hard and soft palate, tongue and posterior pharynx were normal. NECK: Supple and symmetric. There was no thyroid enlargement, and no tenderness, or masses were felt. CHEST: Normal AP diameter and normal contour without any kyphoscoliosis. LUNGS: Auscultation of the lungs revealed no wheezes, rhonchi, or rales. CARDIOVASCULAR: There was a regular rate and rhythm. Grade 2/6 systolic murmur loudest over the LLSB. The carotid pulses were normal and 2+ bilaterally without bruits. Peripheral pulses were 2+ and symmetric. ABDOMEN: Soft and nontender with normal bowel sounds. No ascites was noted. MUSCULOSKELETAL: Gait was normal. There was no tenderness or effusions noted. Muscle strength and tone were normal. EXTREMITIES: No cyanosis, clubbing or edema. NEUROLOGIC: Alert and oriented x 3. Normal affect. Gait was normal. Normal deep tendon reflexes with no pathological reflexes. Sensation to touch was normal. KYREE smooth and coordinated. CN 2-12 grossly intact b/l. Heel to newberry was normal bilaterally. Objective Labs Result Diagrams: 05/07/19 18:37 05/08/19 06:08 Labs: Laboratory Results - last 24 hr 05/07/19 05/07/19 05/07/19 18:37 18:37 18:37 WBC 5.8 RBC 4.12 L Hgb 13.3 L Hct 39.2 L MCV 95.1 MCH 32.2 MCHC 33.9 RDW 12.9 Plt Count 198 Neut % (Auto) 61.6 Lymph % (Auto) 27.2 [place] % (Auto) 6.8 Eos % (Auto) 4.0 Baso % (Auto) 0.4 Neut # (Auto) 3600 Lymph # (Auto) 1600 [place] # (Auto) 400 Eos # (Auto) 200 Baso # (Auto) 0 PT 11.0 INR 1.0 APTT 33 Sodium 134 L Potassium 4.1 Chloride 101 Carbon Dioxide 24 BUN 23 H Creatinine 0.80 Estimated GFR > 60.0 BUN/Creatinine Ratio 28.8 H Glucose 159 H Calcium 9.4 Magnesium Total Bilirubin 0.4 AST 34 ALT 12 L Alkaline Phosphatase 45 Troponin I < 0.012 Total Protein 7.1 Albumin 4.1 Globulin 3.0 Albumin/Globulin Ratio 1.4 Triglycerides Cholesterol LDL Cholesterol, Calc HDL Cholesterol 05/08/19 06:08 WBC RBC Hgb Hct MCV MCH MCHC RDW Plt Count Neut % (Auto) Lymph % (Auto) [place] % (Auto) Eos % (Auto) Baso % (Auto) Neut # (Auto) Lymph # (Auto) [place] # (Auto) Eos # (Auto) Baso # (Auto) PT INR APTT Sodium 134 L Potassium 4.1 Chloride 103 Carbon Dioxide 25 BUN 18 Creatinine 0.80 Estimated GFR > 60.0 BUN/Creatinine Ratio 22.5 H Glucose 90 Calcium 9.0 Magnesium 2.0 Total Bilirubin AST ALT Alkaline Phosphatase Troponin I Total Protein Albumin Globulin Albumin/Globulin Ratio Triglycerides 53 Cholesterol 107 L LDL Cholesterol, Calc 52 HDL Cholesterol 44 Discharge Plan Discharge Plan Patient Disposition: Home Discharge comment: Tano Jorge is a pleasant 83-year-old male with a history of a prior TIA approximately 17 years ago, hypertension, hyperlipidemia, and BPH was in his usual state of health when he was speaking to his daughter earlier today and was having problems word-finding and memory which lasted for only a few hours and resolved by the time he was admitted. Patient was observed overnight and had no recurrences of his symptoms. He had an MRI/MRA of his brain which revealed no evidence of stroke and no significant carotid disease. His echocardiogram showed a normal ejection fraction, however it was slightly less than on prior study with possible inferior wall hypokinesis. Given the lack of chest pain or other cardiac symptoms this is of little clinical relevance in the situation. There was no evidence of thrombus. His LDL level w as 52, and no medication changes were made. He was discharged home the following day. There was no need for physical therapy or speech therapy evaluation as the patient had no deficits upon my examination. 1. Suspected TIA, acute, appears to be resolved on admission - differential includes transient global amnesia, toxic or metabolic encepahlopathies (unlikely given laboratory findings on admission), or complex migraine (patient reports no headaches recently). Patient will continue Aggrenox MRI/MRA as noted above, no abnormal findings Lipid panel well controlled Please follow up with your primary care provider as previously scheduled. 2. Essential hypertension Patient currently takes ramipril 5 mg p.o. b.i.d. which he can continue 3. Hyperlipidemia Patient was taking simvastatin 10 mg daily, this can be continued given his LDL level. 4. BPH Patient will continue home dose of doxazosin 1 mg p.o. at bedtime Discharge Med Rec/Prescriptions Prescriptions: Continued aspirin-dipyridamole [Aggrenox] 25-200 mg Capsule, Er Multiphase 12 Hr 1 cap PO BID RF: 0 doxazosin 1 mg Tablet 1 mg PO BEDTIME RF: 0 simvastatin 10 mg Tablet 10 mg PO BEDTIME RF: 0 ramipril 5 mg Capsule 5 mg PO BID RF: 0 Provider Discharge Instructions Diet: Diet as Tolerated Activity: No restrictions Visit Report/Discharge Packet Instructions: DI for Transient Ischemic Attack, DI for Transient Global Amnesia Discharge Data Attending Provider: Nae Mg Admit Date/Time: 05/07/19 20:07 Quality Stroke Onset of Symptoms Date: 05/07/19 Symptom Onset Unknown: Yes Rehab Services Assessed: Rehabilitation therapy VTE Deep Vein Thrombosis/Pulmonary Embolism Present on Admission: No
--- NOTE | 2019-05-08 14:46 | CM.IDA ---
Initial DCP Assessment Note: Pt is an 83 yo male, resident of [place], [place] here during his boating vacation w/spouse. Pt presents after speaking gibberish for 4 hours. PCP: JEREMY Provider Payer: Medicare/[facility] [place] Reviewed chart. Met w/pt, explained role. Pt is indp. and active at baseline and explains he and his live in [facility] near their 4 adult children and [place]. Pt had a TIA 15 years ago which effected him physically but he was still able to communicate, this event shook him up. Pt's symptoms have resolved and MRI is clear, pt expects to return to the boat w/spouse when medically cleared for DC. P: DC home w/supportive spouse and family upon DC. GALINDO Rosa Discharge Planning/Care Management Advanced directive, confirm from FAMILY Start: 05/07/19 22:31 Freq: Q24H Status: Active Protocol: Document 05/07/19 22:00 GMP (Rec: 05/07/19 23:00 [id number] [id number]) Advance Directive, confirm on record Time 22:00 Person contacted pt Copy received No CM Discharge Assessment Start: 05/08/19 14:44 Freq: Status: Active Protocol: Document 05/08/19 14:45 ALEXY (Rec: 05/08/19 14:46 ALEXY [id number]) Discharge Planning Assessment Assigned Press Service Reader GALINDO Granados DPOA/Assigned Designee Name Anna Le, spouse Contact Information [phone], Advance Directives? No History Provided By Patient Prior Living Arrangements House Household Members spouse Type of transporation used prior to Drives own vehicle admit Independent with ADL's Yes Is patient alert and oriented? Yes Barriers to Discharge No Discharge Plan Home Transportation Arrangement Spouse Referrals Initiated None needed Review Status In Process
--- NOTE | 2019-05-08 15:50 | OT.IP.EVAL ---
Past Medical History (Last Reviewed 05/07/19 @ 22:56 by RAJINDER Powell) BPH (benign prostatic hyperplasia) (Chronic) Essential hypertension (Chronic) Hyperlipidemia (Chronic) TIA (transient ischemic attack) (Acute) Prostate cancer (Chronic) Surgical History (Last Reviewed 05/07/19 @ 22:56 by RAJINDER Powell) Status post appendectomy (Chronic) Status post tonsillectomy and adenoidectomy (Chronic) Occupational Therapy Inpatient Evaluation/Re-Eval M1 PT/OT-IP Prior Functional Status Start: 05/08/19 15:14 Freq: NEEDED Status: Active Protocol: Document 05/08/19 15:14 [facility] (Rec: 05/08/19 15:49 [facility] [id number]) Medical Review Prior Functional Status Medical History Reviewed Yes Communication Independent. Mobility and Gait Independent with no device. Activities of Daily Living and IADL's Independent. Social History Household Members spouse Living Arrangements House M2 OT-IP Current Condition Start: 05/08/19 15:14 Freq: Status: Active Protocol: Document 05/08/19 15:14 [facility] (Rec: 05/08/19 15:49 [facility] [id number]) Occupational Therapy Current Condition Current Condition Evaluation Date 05/08/19 Treatment Diagnosis TIA Diagnosis Onset Date 05/07/19 Weight Bearing Status Weight Bearing Status Weight Bear as Tolerated M3 OT- IP Subjective and Pain Start: 05/08/19 15:14 Freq: Status: Active Protocol: Document 05/08/19 15:14 [facility] (Rec: 05/08/19 15:49 [facility] [id number]) OT- Subjective Occupational Therapy Visit Type Type Initial Evaluation Visit Start Time 14:45 Visit Stop Time 15:05 Total Visit Minutes 20 Occupational Therapy Visit Comments Patient Comments Pt agreeable to do [place] Making Part B and then get dressed. Patient/Caregiver Goals To go home. OT Pain Assessment Pain When Pain Assessed At Rest Pain Present Pain Present Denied Pain M4 OT- IP ADL's Start: 05/08/19 15:14 Freq: Status: Active Protocol: Document 05/08/19 15:14 [facility] (Rec: 05/08/19 15:49 [facility] [id number]) OT ADL-Dressing General Eval Upper Body Dressing Ability Independent Lower Body Dressing Ability Standby Assistance Comments OT Dressing Comments SBA while stand to miguel pants , pt has slight lose of balance but able to right himself. Pt aware to sit to miguel/doff socks/shoes. OT ADL-Toileting Comments OT Toileting Comments Pt states does not have to use the toilet. OT ADL-Bathing Comments OT Bathing Comments Pt states would rather shower at home. M6 OT- IP Functional Cognition Start: 05/08/19 15:14 Freq: Status: Active Protocol: Document 05/08/19 15:14 [facility] (Rec: 05/08/19 15:49 [facility] [id number]) Cognitive Factors Limiting Selfcare Function Cognitive Ability Level of Alertness Alert Patient Orientation Name Age Birthday Month Date Year Day of Week Place Situation Attention Span Ability Capable of Focused Attention Capable of Sustained Attention Ability to Follow Commands Able to Follow Multi-Step Commands Memory Description No Deficits Noted Safety Awareness No Deficits Noted Problem Solving Ability No deficits Noted Executive Function Ability No Deficits Noted Cognitive Comments Cognitive Assessment Comments Pt able to follow multiple commands. Pt scored 105 seconds on [place] Making B which implies mild impairment for executive thinking. Pt encourages to think things through and have assist as needed. OT- Vision and Hearing OT- Vision Assessment Vision Assessment Comments Pt a bit hard of hearing. M7 OT- IP Mobility and Balance Start: 05/08/19 15:14 Freq: Status: Active Protocol: Document 05/08/19 15:14 [facility] (Rec: 05/08/19 15:49 [facility] [id number]) OT-Transfer Assessment Sit to and From Stand Sit to and from Stand Independent Transfers Transfer Ability Independent Technique Transfer Destination Bed Chair Devices Transfer Assistive Devices None Comments Mobility Comments Pt independent in the room. OT- Balance Assessment Sitting Balance and Reactions Static Sitting Balance Ability Normal Dynamic Sitting Balance Ability Normal Standing Balance and Reactions Static Standing Balance Ability Normal Dynamic Standing Balance Ability Good M8 OT- IP Objective Assessments Start: 05/08/19 15:14 Freq: Status: Active Protocol: Document 05/08/19 15:14 [facility] (Rec: 05/08/19 15:49 [facility] [id number]) OT Gross Range of Motion Upper Extremity Range of Motion Assessment Within Functional Limits OT Strength Upper Extremity Strength Assessment Within Functional Limits M9 OT- IP Assessment and Plan Start: 05/08/19 15:14 Freq: Status: Active Protocol: Document 05/08/19 15:14 [facility] (Rec: 05/08/19 15:49 [facility] [id number]) OT Summary Assessment and Plan Potential Rehabilitation Potential Excellent Analytic Complexity at Evaluation Low Summary Progress Towards Goals Safe For Discharge Assessment Summary Pt low complexity and independent for mobility and self-care. Pt looking to go home today, pt feels that he is at baseline level. Pt has supportive to assist as needed. Frequency of Treatment Frequency Of Treatment Discharge Discharge Recommendations OT Discharge Recommendations Home with Assistance
--- NOTE | 2019-05-08 15:52 | PC.NURSE ---
Pt fully dressed and ambulatory ad ana in room and out into hallway @ beginning of shift. States is awaiting discharge. Pt's speech is clear and is able to communicate effectively with staff and spouse who is present in room. Pt denies any of the symptoms which brought pt to hospital initially. Absence of iv and tele confirmed with pt. Pt reports received valuables from safe. Pt states desire to ambulate from hospital to [place] with spouse. Pt is accompanied with spouse and this property underwriter to [facility] entrance and then couple independently on way to [facility]. Pt reports feeling strong enough to accomplish this. Pt left hospital in stable condition with all personal belongings accounted for. Discharge instructions provided in written and printed format to pt.
--- NOTE | 2019-05-08 19:23 | DI.MRI.S_ITS ---
PROCEDURE: MR STROKE Pre- and post-contrast brain MRI, non-contrast brain MR angiogram, pre- and postcontrast neck MR angiogram INDICATIONS: TIA TECHNIQUE: Brain: Noncontrast axial T1 spin echo, axial T2 fast spin echo, sagittal and axial FLAIR, coronal T2 fast spin echo, axial gradient echo, axial diffusion and ADC through the brain. After the administration of contrast, axial 3D VIBE of the cranial vasculature and brain. Brain MRA: Non-contrast 3-D time of flight MR angiogram, with multiple opyqhmi-qnbphughx-icjdmpvuwo (MIP) reformats performed. Neck MRA: Axial and sagittal TruFISP through the neck. Coronal dynamic MR angiogram during administration of contrast in the arterial and venous phases, with 3-dimenstional lwdkcyj-ggmcgkvwq-gzldwlqlyv (MIP) reformats constructed from subtraction images. COMPARISON: [facility], CT, CT HEAD/BRAIN WO CON, 05/07/2019, 18:41. FINDINGS: Image quality: There are motion artifacts. BRAIN: CSF spaces: Ventricles are normal in size and shape. Basal cisterns are patent. No extra-axial fluid collections. Brain: No intracranial bleeds or mass effects. Graff-white matter interface is normal. Diffusion weighted images show no acute ischemic insults. Brainstem appears normal. Normal intravascular flow voids are present. No abnormal intracranial enhancement. Skull and face: Calvarial marrow signal is normal. Orbits appear normal. Sinuses: Sinuses and mastoids are clear. BRAIN MR ANGIOGRAM: Anterior circulation: Intracranial internal carotid arteries are normal in size and enhancement. The flow within the paired anterior cerebral arteries is normal and symmetric. The flow within the middle cerebral arteries is normal and symmetric. The anterior communicating artery is seen. No stenoses, occlusions, or aneurysms. Posterior circulation: The visualized portions of the vertebral arteries demonstrate normal caliber, and join to form a normal appearing basilar artery. The flow within the posterior cerebral arteries is normal and symmetric. No stenoses, occlusions, or aneurysms. NECK MR ANGIOGRAM: Carotids: Great vessels demonstrate a conventional anatomy as they arise from the aortic arch. The origins of the common carotid arteries appear patent. The calibers and courses of both common carotid arteries are normal. The bifurcation regions appear normal bilaterally. The internal carotid arteries demonstrate normal course and caliber. Posterior circulation: The origins of the vertebral arteries appear patent. More superior portions of both vertebral arteries demonstrate normal course and caliber, and join to form a normal appearing basilar artery. Miscellaneous: Subclavian arteries appear patent. Pre-contrast images through the neck show no soft tissue abnormalities. Small bilateral effusions at lung bases. IMPRESSION: BRAIN MRI: 1. No acute intracranial abnormalities. 2. Cerebral volume loss and chronic microvascular ischemic changes. BRAIN MR ANGIOGRAM: 1. No high-grade stenosis or occlusion in anterior circulations. 2. No high-grade stenosis or occlusion in posterior circulations. NECK MR ANGIOGRAM: 1. Suboptimal visualization of carotid artery origins. 2. Otherwise, no high-grade stenosis or occlusion in cervical carotid arteries bilaterally. 3. No high-grade stenosis or occlusion in cervical vertebral arteries bilaterally. Dictated by: Javid Vazquez M.D. on 05/08/2019 at 12:25 Approved by: Javid Vazquez M.D. on 05/08/2019 at 12:33
== END 2019-05-08 15:52 | disposition home or self-care (01) ==
LOC: ED 18:56 → AC 05-08 09:32
PROVIDERS: Admitting Provider Nurse Practitioner Family; Emergency Provider Emergency Medicine; Visit Provider Nurse Practitioner Family
DX: R47.02 Dysphasia (principal); R41.3 Other amnesia; I10 Essential (primary) hypertension; E78.5 Hyperlipidemia, unspecified; N40.0 Benign prostatic hyperplasia without lower urinary tract symptoms
CPT/HCPCS: 36415; 36591; 70450; 70548; 70553; 80048; 80053; 80061; 82962; 83735; 84484; 85025; 85610; 85730; 93005; 93010; 93306; 97161; 97165; 99283; 99285; G0378; J1650

== ENCOUNTER 2019-05-14 17:02 | Emergency (ER) | payer MEDICARE, BC, SELFPAY ==
[2019-05-14 17:08] VITALS: BP 118/72; PULSE 65; RESP 20; TEMP 36.1; O2SAT 95; BMI 26.6
--- NOTE | 2019-05-14 17:12 | DI.RAD.S_ITS ---
PROCEDURE: XR LUMBAR SPINE 2-3V INDICATIONS: fall, injury TECHNIQUE: 3 views of the lumbar spine were acquired. COMPARISON: None. FINDINGS: Bones: 5 gzu-meq-umlqfkl vertebrae are present. There is normal bony alignment. No vertebral body compression fractures. No suspicious bony lesions. Particularly, no sclerotic osseous lesion seen. If concern for occult metastatic disease recommend bone scan. Soft tissues: Overlying bowel gas pattern is normal. No suspicious soft tissue calcifications. Extensive aortoiliac calcified atherosclerotic plaque. Prostate radiotherapy seeds. IMPRESSION: No acute osseous abnormality identified. Dictated by: Thomas Vail M.D. on 05/14/2019 at 17:42 Approved by: Thomas Vail M.D. on 05/14/2019 at 17:44
--- NOTE | 2019-05-14 18:18 | ED.FALL ---
HPI - Fall General Chief Complaint: Fall Stated Complaint: Slipped on boat,lower back pain Time Seen by Provider: 05/14/19 18:18 Source: patient Mode of arrival: ambulatory Limitations: no limitations History of Present Illness HPI Narrative: Patient is an 83-year-old male here for evaluation of injuries that he sustained when he slipped on his boat and landed on his left side. He did not hit his head. His loss of consciousness. He did hit his left flank. He also has an abrasion to his left arm which is placed a butterfly bandage on. He has not had any blood in his urine. He came in for evaluation of his he states that they are about to go on a sailing trip anyone and evaluated before he left. Related Data Home Medications Medication Instructions Recorded Confirmed aspirin-dipyridamole [Aggrenox] 1 cap PO BID 05/07/19 05/14/19 doxazosin 1 mg PO BEDTIME 05/07/19 05/14/19 ramipril 5 mg PO BID 05/07/19 05/14/19 simvastatin 10 mg PO BEDTIME 05/07/19 05/07/19 azelastine 1 drp EYE-BOTH BID 05/14/19 05/14/19 Previous Rx's Medication Instructions Recorded cyclobenzaprine 10 mg PO BEDTIME PRN #10 tab 05/14/19 tramadol [Ultram] 50 mg PO BID PRN #10 tab 05/14/19 Allergies Allergy/AdvReac Type Severity Reaction Status Date / Time No Known Drug Allergies Allergy Verified 05/07/19 18:31 Review of Systems Constitutional Denies fever(s), Denies frequent falls and Denies headache(s) ENT Ears, Nose, Mouth, and Throat: Denies headache(s) Cardiovascular Denies chest pain and Denies dyspnea Respiratory Denies dyspnea Gastrointestinal Comments: Left flank pain Genitourinary Denies dysuria Musculoskeletal Denies myalgias and Denies arthralgias Integumentary/Breasts Comments: Cut to left elbow Neurologic Denies behavioral changes, Denies frequent falls and Denies headache(s) Psychiatric Denies behavioral changes Hematologic/Lymphatic Denies easy bleeding and Denies easy bruising Exam Initial Vital Signs Initial Vital Signs: Vital Signs Temperature 97.0 F L 05/14/19 17:08 Pulse Rate 65 08/22/19 17:08 Respiratory Rate 20 05/14/19 17:08 Blood Pressure 118/72 05/14/19 17:08 Pulse Oximetry 95 05/14/19 17:08 Const General: cooperative, comfortable, well developed and well groomed Orientation: alert, awake and oriented x3 HENMT Head: normal to inspection and normocephalic Resp Effort & Inspection: normal respiratory effort Auscultation: clear to auscultation bilaterally Cardio Rate: regular rate Rhythm: regular rhythm Back/Spine/Pelvis Back: CVA tenderness left Skin Other: Patient with abrasion to left elbow that is well-approximated with the butterfly bandage Extrem General: normal to inspection and capillary refill normal Other: Full range of motion of the left elbow Psych Appearance: grossly normal and well kempt REPLACED BY [facility] Medical History TIA (transient ischemic attack) (Acute) BPH (benign prostatic hyperplasia) (Chronic) Essential hypertension (Chronic) Hyperlipidemia (Chronic) Prostate cancer (Chronic) Social History household members: spouse Smoking Status: Never smoker alcohol intake: never substance use type: does not use Procedures FAST Exam FAST Exam 1: Fluid in Morison's pouch: No Fluid in Splenorenal Junction: No Fluid around bladder, Transverse view: No Fluid around bladder, Sagittal view: No Fluid in Pericardial Sac: No Gross Wall Motion Abnormality: No Study normal for this patient: Yes Images saved for further review: No Scores GCS Fabby coma scale eye opening: Spontaneous Fabby coma scale verbal response: Orientated Fabby coma scale motor response: Obey commands [place] coma scale total score: 15 Course Orders Ordered: ED Orders 05/14/19 17:12 XR lumbar spine 2-3V Stat Vital Signs - 8 hr 05/14/19 17:08 Temperature 97.0 F L Pulse Rate 65 Respiratory Rate 20 Blood Pressure 118/72 Pulse Oximetry 95 MDM - Fall Imaging Data Lumbar spine x-ray: Radiologist's impression: [address] [address] XRay Report Signed Patient: Tano Ayers GMR#: [id number] : [id number]:[id number] Age/Sex: 83 / MDate of Service: 05/14/19 Loc: ED Accession Number: [id number] Procedure: XR lumbar spine 2-3V Ordering Provider: Luann Sparks D.O. PROCEDURE: XR LUMBAR SPINE 2-3V INDICATIONS: fall, injury TECHNIQUE: 3 views of the lumbar spine were acquired. COMPARISON: None. FINDINGS: Bones: 5 [id number] vertebrae are present. There is normal bony alignment. No vertebral body compression fractures. No suspicious bony lesions. Particularly, no sclerotic osseous lesion seen. If concern for occult metastatic disease recommend bone scan. Soft tissues: Overlying bowel gas pattern is normal. No suspicious soft tissue calcifications. Extensive aortoiliac calcified atherosclerotic plaque. Prostate radiotherapy seeds. IMPRESSION: No acute osseous abnormality identified. Dictated by: Thomas Vail M.D. on 05/14/2019 at 17:42 Approved by: Thomas Vail M.D. on 05/14/2019 at 17:44 [facility] Narrative Medical decision making narrative: The abrasion to his left elbow is well approximated with the butterfly bandage site did not feel like we needed to remove that. He was given care instructions. His lumbar spine shows no signs of fractures. His fast exam shows no indication for intra-abdominal bleeding. He has no skin bruising on his left flank. Will hold on any CT scans for now. Patient was given return precautions and follow-up instructions. He expressed understanding and agreement plan. Discharge Plan Departure Patient Disposition: Home Clinical Impression: Contusion of back Qualifiers: Encounter type: initial encounter Laterality: left Qualified Code(s): S20.222A - Contusion of left back wall of thorax, initial encounter Elbow laceration Qualifiers: Encounter type: initial encounter Laterality: left Qualified Code(s): S51.012A - Laceration without foreign body of left elbow, initial encounter Discharge Date/Time: 05/14/19 18:46 Interventions: ED Discharge Assessment Last Done: 05/14/19 18:45 Instructions: DI for Laceration Repair Steri-Strips Activity Restrictions/Additional Instructions: Continue all of your medications as directed. You can shower like normal. Return to the emergency department for any new or worsening symptoms. Contact her primary provider for follow-up. Prescriptions: New cyclobenzaprine 10 mg tablet 10 mg PO BEDTIME PRN (Reason: muscle spasm) Qty: 10 RF: 0 tramadol [Ultram] 50 mg tablet 50 mg PO BID PRN (Reason: pain) Qty: 10 RF: 0 No Action aspirin-dipyridamole [Aggrenox] 25-200 mg Capsule, Er Multiphase 12 Hr 1 cap PO BID RF: 0 doxazosin 1 mg Tablet 1 mg PO BEDTIME RF: 0 simvastatin 10 mg Tablet 10 mg PO BEDTIME RF: 0 ramipril 5 mg Capsule 5 mg PO BID RF: 0 azelastine 0.05 % drops 1 drp EYE-BOTH BID RF: 0
--- NOTE | 2019-05-14 18:45 | PC.NURSE ---
left elbow bandaged with 4 x 4's and secured with kerlix and tape
== END 2019-05-14 18:46 | disposition home or self-care (01) ==
PROVIDERS: Emergency Provider Emergency Medicine
DX: S20.222A Contusion of left back wall of thorax, initial encounter (principal); S51.012A Laceration without foreign body of left elbow, initial encounter; V93.32XA Fall on board fishing boat, initial encounter
CPT/HCPCS: 72100; 99282; 99283

== ENCOUNTER 2022-03-07 11:01 | Emergency (ER) | payer MEDICARE, BC, SELFPAY ==
[2022-03-07] VITALS (9 sets, daily range): BP systolic 125–153; BP diastolic 62–74; PULSE 57–75; RESP 14–24; TEMP 36.3; O2SAT 94–97; BMI 23.6
--- NOTE | 2022-03-07 11:51 | ED_ITS ---
HPI - General Adult General Chief complaint: Dizziness Stated complaint: having dizzy spells at night and morning Time Seen by Provider: 03/07/22 11:45 Source: patient Mode of arrival: Ambulatory History of Present Illness HPI narrative: 86-year-old gentle with a history of hypertension, hyperlipidemia, BPH, and TIA in April of 2019 presents complaining of acute vertigo lasting for just a brief. When he initially sits up in the middle of the night resolved quickly and does not bother him when he is standing and occurs again when he sits up 1st thing in the morning. He symptoms do not bother him at all during the day are not associated with chest pain, palpitations, headache, vision changes, cognitive deficits, global weakness. He notes that he takes Flomax, 5 mg of ramipril b.i.d. is Aggrenox, aspirin and atorvastatin. Notes he had an upper respiratory infection that resolved approximately a week before his symptoms started. Symptoms have been ongoing for the last 7-10 days. Related Data Home Medications Medication Instructions Recorded Confirmed aspirin 25 mg-dipyridamole 200 mg 1 cap PO BID 05/07/19 05/14/19 capsule,ext.release 12 hr multiphase (Aggrenox) doxazosin 1 mg tablet 1 mg PO BEDTIME 05/07/19 05/14/19 ramipril 5 mg capsule 5 mg PO BID 05/07/19 05/14/19 simvastatin 10 mg tablet 10 mg PO BEDTIME 05/07/19 05/07/19 azelastine 0.05 % eye drops 1 drp EYE-BOTH BID 05/14/19 05/14/19 Previous Rx's Medication Instructions Recorded cyclobenzaprine 10 mg tablet 10 mg PO BEDTIME PRN muscle spasm 05/14/19 #10 tabs tramadol 50 mg tablet (Ultram) 50 mg PO BID PRN pain #10 tabs 05/14/19 Allergies Allergy/AdvReac Type Severity Reaction Status Date / Time No Known Drug Allergies Allergy Verified 03/07/22 11:09 Review of Systems Review of Systems Narrative: Remainder of complete review of systems is otherwise unremarkable except for that included in the HPI. Patient History Medical History (Updated 03/07/22 @ 12:21 by Oriana Moreira MD) BPH (benign prostatic hyperplasia) Essential hypertension Hyperlipidemia Prostate cancer TIA (transient ischemic attack) Surgical History Status post appendectomy Status post tonsillectomy and adenoidectomy Family History Mother Cancer Father Myocardial infarction Social History household members: spouse Smoking Status: Never smoker alcohol intake: never substance use type: does not use Smoking Status: Never smoker alcohol intake frequency: holidays/special occasions only Substance Use Type: does not use Exam Initial Vital Signs Initial Vital Signs: Vital Signs Temperature 97.3 F L 03/07/22 11:09 Pulse Rate 69 03/07/22 11:09 Respiratory Rate 14 03/07/22 11:09 Blood Pressure 153/74 H 03/07/22 11:09 Pulse Oximetry 97 03/07/22 11:09 Oxygen Delivery Method 03/07/22 11:09 General: Healthy appearing, in no acute distress. Able to give a complete and coherent history. Well-nourished well-developed Orthostatic blood pressures: Lying flat heart rate 64, blood pressure 127/69, sitting blood pressure 129/67 with heart rate at 69, standing heart rate goes to 80 and rapidly comes down to 74 and blood pressure is 125/65 HEENT: Moist mucous membranes, normal sclera with reactive pupils, tympanic membranes are unremarkable Neck: No JVD, supple, no cervical adenopathy Respiratory: Lungs are clear to auscultation, no wheezing no rales no rhonchi. Full and symmetrical air movement Cardiac: Regular rate and rhythm no murmurs no bruits Abdomen: Soft, nontender, good bowel tones, no flank pain Skin: Warm and dry, no rashes Neurologic: Grossly neurologically intact with no obvious asymmetries or abnormalities Extremities: No trauma, well perfused Psych: Cooperative, appropriate insight and affect Course Orders Ordered: ED Orders 03/07/22 11:12 EKG-12 Lead Stat 03/07/22 12:35 Complete Blood Count AUTO DIFF Stat Comprehensive Metabolic Panel Stat Vital Signs Vital signs: Vital Signs - 8 hr 03/07/22 11:09 03/07/22 11:46 03/07/22 11:47 Temperature 97.3 F L Pulse Rate 69 64 65 Respiratory Rate 14 17 21 Blood Pressure 153/74 H Pulse Oximetry 97 95 94 Oxygen Delivery Method Room Air 03/07/22 11:47 03/07/22 12:00 03/07/22 12:00 Temperature Pulse Rate 66 Respiratory Rate 20 Blood Pressure 128/67 136/73 Pulse Oximetry 94 Oxygen Delivery Method 03/07/22 12:04 03/07/22 12:04 03/07/22 12:05 Temperature Pulse Rate 63 65 Respiratory Rate 21 21 Blood Pressure 127/69 Pulse Oximetry 95 96 Oxygen Delivery Method 03/07/22 12:05 03/07/22 12:07 03/07/22 12:07 Temperature Pulse Rate 75 Respiratory Rate 24 Blood Pressure 129/62 125/65 Pulse Oximetry 94 Oxygen Delivery Method 03/07/22 12:30 03/07/22 12:30 Temperature Pulse Rate 57 L Respiratory Rate 16 Blood Pressure 141/71 H Pulse Oximetry 96 Oxygen Delivery Method Medical Decision Making Lab Data Result diagrams: 03/07/22 12:35 03/07/22 12:35 Labs: Lab Results 03/07/22 03/07/22 Range/Units 12:35 12:35 WBC 4.4 L (4.5-11.0) X10^3/uL RBC 3.78 L (4.5-5.9) X10^6/uL Hgb 12.3 L (13.5-17.5) g/dL Hct 36.2 L (41-53) % MCV 95.9 (80-100) fL MCH 32.7 (26-34) PG MCHC 34.1 (30-36) % RDW 13.5 (11.6-14.8) % Plt Count 161 (150-400) X10^3/uL Neut % (Auto) 58.5 (50-75) % Lymph % (Auto) 29.4 (25-40) % [place] % (Auto) 9.8 (3-14) % Eos % (Auto) 2.1 (2-4) % Baso % (Auto) 0.2 (0-2) % Neut # (Auto) 2600 (1205-5097) /uL Lymph # (Auto) 1300 (0042-4458) /uL [place] # (Auto) 400 (0-900) /uL Eos # (Auto) 100 (0-450) /uL Baso # (Auto) 0 (0-100) /uL Sodium 138 (137-145) mmol/L Potassium 4.4 (3.4-5.1) mmol/L Chloride 107 (98-107) mmol/L Carbon Dioxide 25 (22-32) mmol/L BUN 23 H (9-20) mg/dL Creatinine 0.87 (0.66-1.25) mg/dL Estimated GFR > 60 (>60) mL/min BUN/Creatinine Ratio 26.4 H (6-22) Glucose 92 (80-110) mg/dL Calcium 8.9 (8.4-10.2) mg/dL Total Bilirubin 0.7 (0.2-1.3) mg/dL AST 26 (17-59) IU/L ALT 15 (<50) IU/L Alkaline Phosphatase 38 (38-126) U/L Total Protein 6.9 (6.3-8.2) g/dL Albumin 4.1 (3.5-5.0) g/dL Globulin 2.8 (1.7-4.1) g/dL Albumin/Globulin Ratio 1.5 (1.0-2.8) ECG Data Interpretation: Sinus rhythm at a rate of 66 Normal intervals, normal axis No acute ischemic changes MDM Narrative Medical decision making narrative: Fairly healthy 86-year-old gentleman who presents with brief episodes of vertigo when going from a prone to a sitting position that then resolves with no issues during the days. He does not appear to be orthostatic, electrolytes are unremarkable. There is no evidence of ongoing TIA, stroke, acute coronary syndrome. Possibilities include mild dehydration and will suggest that he drink a glass of water prior to bed. Will also suggest that he check blood pressures in the middle of the night and 1st thing in the morning. He may benefit from decreasing his ramipril to once a day. He may have a mild labyrinthitis as result of recent upper respiratory infection. All of these possibilities are reviewed with him. At this point there clearly is no life-threatening etiology he has a number of options to consider and is safe for home discharge. Encouraged him to return if he has worsening symptoms. Discharge Plan Departure Patient Disposition: Home Clinical Impression: Orthostatic hypotension Instructions: Orthostatic Hypotension Activity Restrictions/Additional Instructions: Thank you for coming in today Your symptoms of dizziness when going from a lying down to sitting up that resolve fairly quickly do not suggest a significant pathologic finding. I do not think that this is a stroke, this is not recurrent TIAs, you are not having a heart attack and there is no sign of severe infection. There are a number of possibilities that may be causing this. One is mild dehy dration and I would suggest that you drink a glass of water prior to bed each night and see if this changes anything Low blood pressure could also be causing this. I would suggest that you get a blood pressure cuff and check blood pressures in the middle of the night. If the numbers are consistently below 100/60, I would suggest you stop the evening dose of ramipril. Finally, there is a possibility that this is mild inner ear persistent symptoms after your recent upper respiratory infection. If that is the case, this is going to resolve within the next week or 2. If you find that you are getting worse or develop any new symptoms, please feel free to return to the emergency department for further evaluation. Prescriptions: No Action aspirin-dipyridamole [Aggrenox] 25-200 mg Capsule, Er Multiphase 12 Hr 1 cap PO BID doxazosin 1 mg Tablet 1 mg PO BEDTIME simvastatin 10 mg Tablet 10 mg PO BEDTIME ramipril 5 mg Capsule 5 mg PO BID azelastine 0.05 % drops 1 drp EYE-BOTH BID Label Comments: INSTILL 1 DROP INTO BOTH EYES TWICE A DAY cyclobenzaprine 10 mg tablet 10 mg PO BEDTIME PRN (Reason: muscle spasm) Qty: 10 0RF tramadol [Ultram] 50 mg tablet 50 mg PO BID PRN (Reason: pain) Qty: 10 0RF
[2022-03-07 12:43] LABS: Add Manual Diff / Slide Review NO; Basophils Absolute Auto 0 /uL (0-100); Basophils Percent Auto 0.2 % (0-2); Eosinophils Absolute Auto 100 /uL (0-450); Eosinophils Percent Auto 2.1 % (2-4); Hematocrit 36.2 % (41-53); Hemoglobin 12.3 g/dL (13.5-17.5); Lymphocytes Absolute Auto 1300 /uL (1100-4500); Lymphocytes Percent Auto 29.4 % (25-40); Mean Corpuscular HGB Conc 34.1 % (30-36); Mean Corpuscular Hemoglobin 32.7 PG (26-34); Mean Corpuscular Volume 95.9 fL (80-100); Monocytes Absolute Auto 400 /uL (0-900); Monocytes Percent Auto 9.8 % (3-14); Neutrophils Absolute Auto 2600 /uL (1500-7000); Neutrophils Percent Auto 58.5 % (50-75); Platelet Count 161 X10^3/uL (150-400); Red Blood Cell Count 3.78 X10^6/uL (4.5-5.9); Red Cell Distribution Width 13.5 % (11.6-14.8); White Blood Cell Count 4.4 X10^3/uL (4.5-11.0)
[2022-03-07 12:54] LABS: Alanine Aminotransferase 15 IU/L (<50); Albumin 4.1 g/dL (3.5-5.0); Albumin Globulin Ratio 1.5 (1.0-2.8); Alkaline Phosphatase 38 U/L (38-126); Aspartate Aminotransferase 26 IU/L (17-59); BUN Creatinine Ratio 26.4 (6-22); Bilirubin Total 0.7 mg/dL (0.2-1.3); Blood Urea Nitrogen 23 mg/dL (9-20); Calcium 8.9 mg/dL (8.4-10.2); Carbon Dioxide 25 mmol/L (22-32); Chloride 107 mmol/L (98-107); Estimated Glomerular Filt Rate > 60 mL/min (>60); Globulin 2.8 g/dL (1.7-4.1); Glucose 92 mg/dL (80-110); HEMOLYSIS < 15 (0-50); Potassium 4.4 mmol/L (3.4-5.1); Sodium 138 mmol/L (137-145); Total Protein 6.9 g/dL (6.3-8.2)
== END 2022-03-07 18:37 | disposition home or self-care (01) ==
PROVIDERS: Emergency Provider Emergency Medicine
DX: I95.1 Orthostatic hypotension (principal)
CPT/HCPCS: 36415; 80053; 85025; 93005; 93010; 99283

== ENCOUNTER 2022-03-18 09:52 | Emergency (ER) | payer MEDICARE, BC, SELFPAY ==
[2022-03-18] VITALS (11 sets, daily range): BP systolic 122–172; BP diastolic 58–83; PULSE 51–63; RESP 10–21; TEMP 36.5; O2SAT 92–97; BMI 23.7
--- NOTE | 2022-03-18 13:34 | ED.DIZZY ---
HPI - Dizziness <Estiven Dan PA-C - Last Filed: 03/18/22 19:37> General Chief Complaint: Dizziness Stated Complaint: dizzy, high BP Time Seen by Provider: 03/18/22 13:09 Source: patient Mode of arrival: Ambulatory History of Present Illness HPI Narrative: Patient is an 86-year-old male with a history of transient ischemic attack who presents to the emergency department today for evaluation of intermittent dizziness. Patient explains that he was seen here in the emergency department on 03/06/2022 for similar symptoms, with all lab studies obtained at that time returning within normal limits. He states he has been experiencing intermittent episodes of dizziness since that time, stating that they have become more frequent and longer in duration. Patient explains that he was asked to take his blood pressure while these episodes were occurring and he states that he has been noticing increased blood pressure during these episodes. He does report a systolic blood pressure of 195 during 1 of his dizzy spells. He denies any fever, chills, chest pain, cough, shortness of breath, nausea, vomiting, diarrhea, constipation, abdominal pain, dysuria, hematuria, or any other concerning symptoms. No further concerns were voiced at this time. Related Data Home Medications Medication Instructions Recorded Confirmed aspirin 25 mg-dipyridamole 200 mg 1 cap PO BID 05/07/19 05/14/19 capsule,ext.release 12 hr multiphase (Aggrenox) doxazosin 1 mg tablet 1 mg PO BEDTIME 05/07/19 05/14/19 ramipril 5 mg capsule 5 mg PO BID 05/07/19 05/14/19 simvastatin 10 mg tablet 10 mg PO BEDTIME 05/07/19 05/07/19 azelastine 0.05 % eye drops 1 drp EYE-BOTH BID 05/14/19 05/14/19 Previous Rx's Medication Instructions Recorded cyclobenzaprine 10 mg tablet 10 mg PO BEDTIME PRN muscle spasm 05/14/19 #10 tabs tramadol 50 mg tablet (Ultram) 50 mg PO BID PRN pain #10 tabs 05/14/19 Allergies Allergy/AdvReac Type Severity Reaction Status Date / Time No Known Drug Allergies Allergy Verified 03/07/22 11:09 Review of Systems <Estiven Dan PA-C - Last Filed: 03/18/22 19:37> Constitutional Constitutional: Denies chills, Denies fatigue, Denies fever(s), Denies frequent falls, Denies lethargy and Denies weakness ENT Ears, Nose, Mouth, and Throat: Reports dizziness and Denies neck pain Cardiovascular Cardiovascular: Denies chest pain, Denies irregular heart rhythm, Denies lightheadedness, Denies palpitations, Denies dyspnea, Denies dyspnea on exertion, Denies orthopnea and Reports other (Increased blood pressure) Respiratory Respiratory: Denies dyspnea and Denies dyspnea on exertion Gastrointestinal Gastrointestinal: Denies abdominal pain, Denies change in bowel habits, Denies diarrhea, Denies nausea and Denies vomiting Genitourinary Genitourinary: Denies hematuria, Denies flank pain, Denies urinary incontinence and Denies urinary urgency Musculoskeletal Musculoskeletal: Denies back pain, Denies muscle weakness, Denies neck pain, Denies numbness and Denies tingling Integumentary/Breasts Skin/Breast: Denies pruritus, Denies erythema, Denies rash and Denies wounds Neurologic Neurologic: Reports dizziness, Denies frequent falls, Denies numbness, Denies tingling and Denies weakness Endocrine Endocrine: Denies fatigue and Denies palpitations Patient History <Estiven Dan PA-C - Last Filed: 03/18/22 19:37> Medical History (Updated 03/18/22 @ 14:32 by Estiven Dna PA-C) BPH (benign prostatic hyperplasia) Essential hypertension Hyperlipidemia Prostate cancer TIA (transient ischemic attack) Surgical History Status post appendectomy Status post tonsillectomy and adenoidectomy Family History Mother Cancer Father Myocardial infarction Social History household members: spouse Smoking Status: Never smoker alcohol intake: never substance use type: does not use Smoking Status: Never smoker alcohol intake frequency: holidays/special occasions only Substance Use Type: does not use Exam <Estiven Dan PA-C - Last Filed: 03/18/22 19:37> Narrative Exam Narrative: GENERAL: 86 year old patient appears stated age. Well-developed patient, in no acute distress. HEAD: Atraumatic. Normocephalic. EYES: Pupils equal round and reactive. Extraocular motions intact. No scleral icterus. No injection or drainage. ENT: Nose without bleeding, purulent drainage. Throat without erythema, tonsillar hypertrophy or exudate. Airway patent. NECK: Trachea midline. Non tender CARDIOVASCULAR: Regular rate and rhythm without murmurs, gallops, or rubs. RESPIRATORY: Clear to auscultation. Breath sounds equal bilaterally. No wheezes, rales, or rhonchi. GASTROINTESTINAL: Abdomen soft, non-tender, nondistended. EXTREMITIES: No edema or joint tenderness. BACK: Nontender without deformity or crepitance. No flank tenderness. NEURO: AOx3. SKIN: No rash or erythema of visible areas Initial Vital Signs Initial Vital Signs: Vital Signs Pulse Rate 60 03/18/22 10:03 Blood Pressure 146/72 H 03/18/22 10:03 Pulse Oximetry 95 03/18/22 10:03 <Alonzo Haro MD - Last Filed: 03/18/22 20:39> Initial Vital Signs Initial Vital Signs: Vital Signs Pulse Rate 60 03/18/22 10:03 Blood Pressure 146/72 H 03/18/22 10:03 Pulse Oximetry 95 03/18/22 10:03 Course <Estiven Dan PA-C - Last Filed: 03/18/22 19:37> Course Course Narrative: CBC, CMP, lactate, troponin, EKG ordered. Reviewed lab studies from visit in the emergency department on 03/06/2022. Orders Ordered: ED Orders 03/18/22 13:26 EKG-12 Lead Stat 03/18/22 13:34 CBC Auto Diff [Complete Blood Count AUTO DIFF] Stat CMP [Comprehensive Metabolic Panel] Stat Lactate (Lactic Acid) Stat Troponin & CK Cardiac Panel Stat Vital Signs Vital signs: Vital Signs - 8 hr 03/18/22 13:00 03/18/22 13:00 03/18/22 14:08 Pulse Rate 54 L 57 L Respiratory Rate 12 21 Blood Pressure 159/77 H Pulse Oximetry 96 92 03/18/22 14:09 03/18/22 14:09 03/18/22 14:30 Pulse Rate 55 L Respiratory Rate 19 Blood Pressure 165/78 H 172/83 H Pulse Oximetry 96 03/18/22 14:30 Pulse Rate 51 L Respiratory Rate 17 Blood Pressure Pulse Oximetry 95 <Alonzo Haro MD - Last Filed: 03/18/22 20:39> Orders Ordered: ED Orders 03/18/22 13:26 EKG-12 Lead Stat 03/18/22 13:34 CBC Auto Diff [Complete Blood Count AUTO DIFF] Stat CMP [Comprehensive Metabolic Panel] Stat Lactate (Lactic Acid) Stat Troponin & CK Cardiac Panel Stat Vital Signs Vital signs: Vital Signs - 8 hr 03/18/22 13:00 03/18/22 13:00 03/18/22 14:08 Pulse Rate 54 L 57 L Respiratory Rate 12 21 Blood Pressure 159/77 H Pulse Oximetry 96 92 03/18/22 14:09 03/18/22 14:09 03/18/22 14:30 Pulse Rate 55 L Respiratory Rate 19 Blood Pressure 165/78 H 172/83 H Pulse Oximetry 96 03/18/22 14:30 Pulse Rate 51 L Respiratory Rate 17 Blood Pressure Pulse Oximetry 95 MDM - Dizziness <Estiven Dan PA-C - Last Filed: 03/18/22 19:37> Lab Data Result diagrams: 03/18/22 13:34 03/18/22 13:34 Labs: Lab Results 03/18/22 03/18/22 03/18/22 Range/Units 13:34 13:34 13:34 WBC 5.1 (4.5-11.0) X10^3/uL RBC 3.89 L (4.5-5.9) X10^6/uL Hgb 12.5 L (13.5-17.5) g/dL Hct 37.2 L (41-53) % MCV 95.8 (80-100) fL MCH 32.3 (26-34) PG MCHC 33.7 (30-36) % RDW 13.3 (11.6-14.8) % Plt Count 162 (150-400) X10^3/uL Neut % (Auto) 62.3 (50-75) % Lymph % (Auto) 27.1 (25-40) % [place] % (Auto) 8.1 (3-14) % Eos % (Auto) 2.2 (2-4) % Baso % (Auto) 0.3 (0-2) % Neut # (Auto) 3200 (6911-8371) /uL Lymph # (Auto) 1400 (9136-7915) /uL [place] # (Auto) 400 (0-900) /uL Eos # (Auto) 100 (0-450) /uL Baso # (Auto) 0 (0-100) /uL Sodium 137 (137-145) mmol/L Potassium 4.7 (3.4-5.1) mmol/L Chloride 104 (98-107) mmol/L Carbon Dioxide 27 (22-32) mmol/L BUN 15 (9-20) mg/dL Creatinine 0.85 (0.66-1.25) mg/dL Estimated GFR > 60 (>60) mL/min BUN/Creatinine Ratio 17.6 (6-22) Glucose 97 (80-110) mg/dL Lactate 1.4 (0.7-2.1) mmol/L Calcium 9.0 (8.4-10.2) mg/dL Total Bilirubin 0.5 (0.2-1.3) mg/dL AST 27 (17-59) IU/L ALT 16 (<50) IU/L Alkaline Phosphatase 40 (38-126) U/L Total Creatine Kinase 116 (55-170) U/L CK-MB (CK-2) 2.24 (<2.37) ng/mL CK-MB (CK-2) Rel Index 1.9 (1.5-5.0) % Troponin I < 0.012 (0.01-0.034) ng/mL Total Protein 6.8 (6.3-8.2) g/dL Albumin 3.9 (3.5-5.0) g/dL Globulin 2.9 (1.7-4.1) g/dL Albumin/Globulin Ratio 1.3 (1.0-2.8) MDM Narrative Medical decision making narrative: Differential diagnosis to consider but not limited to arrhythmia versus acute coronary syndrome versus transient ischemic attack versus cerebrovascular accident versus orthostatic hypotension versus benign paroxysmal positional vertigo. I discussed results of lab studies with patient and informed him that no acute abnormality was identified today. I urged the patient to continue checking blood pressure regularly during events of dizziness. I offered patient medications to help alleviate his symptoms but he declined. Patient states that if he feels like his symptoms are worsening he will return home to [place] follow-up with his primary care provider. I discussed very strict return precautions with the patient prior to discharge. <Alonzo Haro MD - Last Filed: 03/18/22 20:39> Lab Data Labs: Lab Results 03/18/22 03/18/22 03/18/22 Range/Units 13:34 13:34 13:34 WBC 5.1 (4.5-11.0) X10^3/uL RBC 3.89 L (4.5-5.9) X10^6/uL Hgb 12.5 L (13.5-17.5) g/dL Hct 37.2 L (41-53) % MCV 95.8 (80-100) fL MCH 32.3 (26-34) PG MCHC 33.7 (30-36) % RDW 13.3 (11.6-14.8) % Plt Count 162 (150-400) X10^3/uL Neut % (Auto) 62.3 (50-75) % Lymph % (Auto) 27.1 (25-40) % [place] % (Auto) 8.1 (3-14) % Eos % (Auto) 2.2 (2-4) % Baso % (Auto) 0.3 (0-2) % Neut # (Auto) 3200 (0912-4873) /uL Lymph # (Auto) 1400 (9362-7538) /uL [place] # (Auto) 400 (0-900) /uL Eos # (Auto) 100 (0-450) /uL Baso # (Auto) 0 (0-100) /uL Sodium 137 (137-145) mmol/L Potassium 4.7 (3.4-5.1) mmol/L Chloride 104 (98-107) mmol/L Carbon Dioxide 27 (22-32) mmol/L BUN 15 (9-20) mg/dL Creatinine 0.85 (0.66-1.25) mg/dL Estimated GFR > 60 (>60) mL/min BUN/Creatinine Ratio 17.6 (6-22) Glucose 97 (80-110) mg/dL Lactate 1.4 (0.7-2.1) mmol/L Calcium 9.0 (8.4-10.2) mg/dL Total Bilirubin 0.5 (0.2-1.3) mg/dL AST 27 (17-59) IU/L ALT 16 (<50) IU/L Alkaline Phosphatase 40 (38-126) U/L Total Creatine Kinase 116 (55-170) U/L CK-MB (CK-2) 2.24 (<2.37) ng/mL CK-MB (CK-2) Rel Index 1.9 (1.5-5.0) % Troponin I < 0.012 (0.01-0.034) ng/mL Total Protein 6.8 (6.3-8.2) g/dL Albumin 3.9 (3.5-5.0) g/dL Globulin 2.9 (1.7-4.1) g/dL Albumin/Globulin Ratio 1.3 (1.0-2.8) Discharge Plan Departure Patient Disposition: Home Clinical Impression: Dizziness Instructions: DI for Dizziness-Nonvertigo Activity Restrictions/Additional Instructions: *You have been diagnosed with dizziness *What to do: *Please continue to take your regular medications as directed. [ ] New medication prescriptions sent to your pharmacy: [ ] [ ] New medication written as a paper prescription [X] No new medications given You were evaluated in the emergency department today for elevated blood pressure and dizziness. Overall, lab studies and physical exam findings were within normal limits today. I recommend continuing to check your blood pressure to ensure that it is not significantly elevated. I believe that it would be best to follow-up with the primary care provider if the symptoms seem to be worsening. Please do not hesitate to return to the emergency department if you experience worsening dizziness, loss of consciousness, increasing blood pressure, speech disturbances, numbness and tingling, or any other concerning symptoms. *Please follow up with your primary care provider in 2-3 days, call for an appointment. Let them know you were seen in the Emergency Department and that we ask that you be seen in follow up. We will electronically transmit a record of today's note if your PCP is in our system *If you do not have a primary care provider please contact the [facility] Resource line at [phone]. They will ask some questions about your medical history and help get you set up with a doctor in the community. *Return to Emergency Department if you should have any new, worsening or concerning symptoms, such as fever greater than 101 F, shaking chills, worsening pain, persistent vomiting or other bothersome symptoms. Prescriptions: No Action aspirin-dipyridamole [Aggrenox] 25-200 mg Capsule, Er Multiphase 12 Hr 1 cap PO BID doxazosin 1 mg Tablet 1 mg PO BEDTIME simvastatin 10 mg Tablet 10 mg PO BEDTIME ramipril 5 mg Capsule 5 mg PO BID azelastine 0.05 % drops 1 drp EYE-BOTH BID Label Comments: INSTILL 1 DROP INTO BOTH EYES TWICE A DAY cyclobenzaprine 10 mg tablet 10 mg PO BEDTIME PRN (Reason: muscle spasm) Qty: 10 0RF tramadol [Ultram] 50 mg tablet 50 mg PO BID PRN (Reason: pain) Qty: 10 0RF Visit Report Forms: Patient Portal/API <Alonzo Haro MD - Last Filed: 03/18/22 20:39> Cosign ED Attending Cosignature Attestation: I was immediately available in the department for consultation. Supervised by Alonzo Haro MD
[2022-03-18 13:42] LABS: Add Manual Diff / Slide Review NO; Basophils Absolute Auto 0 /uL (0-100); Basophils Percent Auto 0.3 % (0-2); Eosinophils Absolute Auto 100 /uL (0-450); Eosinophils Percent Auto 2.2 % (2-4); Hematocrit 37.2 % (41-53); Hemoglobin 12.5 g/dL (13.5-17.5); Lymphocytes Absolute Auto 1400 /uL (1100-4500); Lymphocytes Percent Auto 27.1 % (25-40); Mean Corpuscular HGB Conc 33.7 % (30-36); Mean Corpuscular Hemoglobin 32.3 PG (26-34); Mean Corpuscular Volume 95.8 fL (80-100); Monocytes Absolute Auto 400 /uL (0-900); Monocytes Percent Auto 8.1 % (3-14); Neutrophils Absolute Auto 3200 /uL (1500-7000); Neutrophils Percent Auto 62.3 % (50-75); Platelet Count 162 X10^3/uL (150-400); Red Blood Cell Count 3.89 X10^6/uL (4.5-5.9); Red Cell Distribution Width 13.3 % (11.6-14.8); White Blood Cell Count 5.1 X10^3/uL (4.5-11.0)
[2022-03-18 13:55] LABS: Lactate (Lactic Acid) 1.4 mmol/L (0.7-2.1)
[2022-03-18 13:56] LABS: Alanine Aminotransferase 16 IU/L (<50); Albumin 3.9 g/dL (3.5-5.0); Albumin Globulin Ratio 1.3 (1.0-2.8); Alkaline Phosphatase 40 U/L (38-126); Aspartate Aminotransferase 27 IU/L (17-59); BUN Creatinine Ratio 17.6 (6-22); Bilirubin Total 0.5 mg/dL (0.2-1.3); Blood Urea Nitrogen 15 mg/dL (9-20); Carbon Dioxide 27 mmol/L (22-32); Chloride 104 mmol/L (98-107); Creatine Kinase 116 U/L (55-170); Estimated Glomerular Filt Rate > 60 mL/min (>60); Globulin 2.9 g/dL (1.7-4.1); Glucose 97 mg/dL (80-110); HEMOLYSIS < 15 (0-50); Potassium 4.7 mmol/L (3.4-5.1); Sodium 137 mmol/L (137-145); Total Protein 6.8 g/dL (6.3-8.2)
[2022-03-18 14:08] LABS: Troponin I < 0.012 ng/mL (0.01-0.034)
[2022-03-18 14:12] LABS: CKMB % Relative Index 1.9 % (1.5-5.0); Creatine Kinase MB 2.24 ng/mL (<2.37)
== END 2022-03-18 14:50 | disposition home or self-care (01) ==
PROVIDERS: Emergency Provider Physician Assistant
DX: R42 Dizziness and giddiness (principal)
CPT/HCPCS: 36415; 80053; 82550; 82553; 83605; 84484; 85025; 93005; 99283